=== PATIENT | male | born 1935 | race Caucasian/White ===

== ENCOUNTER 2016-05-31 17:06 | Observation (INO) ==
[2016-05-31] MEDS ORDERED: Ipratropium/Albuterol Neb 3 ML IH ONE (17:19)
[2016-05-31] MEDS ORDERED: methylPREDNISolone 125 MG/2 ML VIAL IVP ONE (17:25)
--- NOTE | 2016-05-31 17:35 | Emergency Department Note ---
Disposition Clinical Impression: Acute exacerbation of chronic obstructive pulmonary disease (COPD), Community acquired pneumonia Disposition: Home, Self-Care Condition: Good Referrals: NO,PCP [Non-Partnered Physician] - Forms: ED Satisfaction Letter General Adult HPI - General Chief complaint: ED Shortness of Breath/Dyspnea Stated complaint: BEST Time Seen by Provider: 05/31/16 17:14 Source: patient Nursing Notes Reviewed: Yes Vital Signs Reviewed: Yes - History of Present Illness Pain Scale: 0 - Related Data Home Medications Medication Instructions Recorded Confirmed Albuterol Sulfate [Albuterol 2 puff IS Q4H PRN 12/17/14 05/31/16 Inhaler] Aspirin 325 mg PO DAILY 12/17/14 05/31/16 Cholecalciferol (D-3) [Vitamin D3] 2,000 unit PO DAILY 12/17/14 05/31/16 Diltiazem HCl [Diltiazem 24Hr Cd] 240 mg PO DAILY 12/17/14 05/31/16 Latanoprost [Xalatan] 1 drop LEFT EYE HS 12/17/14 05/31/16 Tiotropium [Spiriva] 18 mcg IH 0700 12/17/14 05/31/16 Alfuzosin HCl [Uroxatral] 10 mg PO DAILY 05/31/16 05/31/16 Brimonidine Tartrate/Timolol 1 drop LEFT EYE TID 05/31/16 05/31/16 [Combigan Eye Drops] Budesonide/Formoterol 160/4.5 2 puff IH BIDR 05/31/16 05/31/16 [Symbicort 160/4.5] Oxygen 2 l NS AD 05/31/16 05/31/16 Ranitidine HCl [Acid Turbogenerator Operator] 150 mg PO BID 05/31/16 05/31/16 Ubidecarenone [Co Q-10] 200 mg PO DAILY 05/31/16 05/31/16 Allergies Allergy/AdvReac Type Severity Reaction Status Date / Time Penicillins Allergy Swelling Verified 12/08/14 10:28 of Lip/Tongue/Throat Past Medical History - Past Medical History Medical history: Reports: asthma, COPD, coronary artery disease, hyperlipidemia , hypertension Surgical history: Reports: cholecystectomy Psychiatric history: Reports: no psych history - Social History Smoking Status: Never smoker Smokeless Tobacco Status: No Alcohol use: Reports: none Drug use: Reports: none Physical Exam - General General appearance: alert Course Vital Signs Temperature 98.2 F 05/31/16 17:14 Pulse Rate 83 05/31/16 17:14 Respiratory Rate 20 05/31/16 17:14 Blood Pressure 119/95 05/31/16 17:14 O2 Sat by Pulse Oximetry 93 L 05/31/16 17:14 Temperature 98.2 F 05/31/16 17:14 Pulse Rate 78 05/31/16 20:07 Respiratory Rate 22 05/31/16 18:32 Blood Pressure 125/69 05/31/16 20:07 O2 Sat by Pulse Oximetry 93 L 05/31/16 20:07 Oxygen Delivery Oxygen Delivery Venti Mask Medical Decision Making - MDM Narrative Medical decision making narrative: I examined this patient and my medical decision-making was reviewed with the GLASS DECORATOR/PA/Advanced Practice Nurse/Resident Physician. I agree with the documented findings, disposition and treatment plan as described except to the extent set forth below. I evaluated this patient today with Dr. Cortez, I agree with his evaluation and management plan, supervising care the patient outstay. Patient comes in today with acute dyspnea and on for more than 24 hours. History of COPD he has also had a history of blebs with lung collapse on the left he does not think it status he has had a lobectomy with pleurodesis. He denies any chest pain at this time he does not think he is getting fluid buildup did go golf this week and then thinks she has been cut short of breath after that. There is conversationally dyspneic to about 2 words he has no pitting edema no chest pain. He is not moving air well and the lungs were starting on breathing treatments here once we put him on oxygen from his normal 2 L up to facemasks his sats went up to 98%. We will reassess him once his labs and x-rays are back. He is in agreement with this plan. Most likely he will need admission. Chest X-Ray 05/31/16 17:14 IMPRESSION: Asymmetric right lower lobe airspace disease concerning for pneumonia. Hyperinflation and upper lobe emphysema. D/ / Sonu Conley MD / Sonu Conley MD Interpreting Provider: Sonu Conley MD 1824 hrs.: 4 to go ahead and bring him into the hospital. Her grandmother speak with hospitalist. Start him on antibiotics here. He is in agreement this plan. He is doing better after he got the 3 breathing treatments here but he still required about 6 L of oxygen. She is not having pain he is not coughing here he is nontoxic in appearance. His critical care time exclusive separately billable procedures is 32 minutes. - Lab Data Result diagrams: 05/31/16 17:38 05/31/16 17:38 Lab Results 05/31/16 05/31/16 05/31/16 Range/Units 17:38 17:38 17:38 WBC 8.1 (4.3-11.1) K/mcL RBC 4.32 (4.19-5.50) M/mcL Hgb 13.1 (12.9-16.9) g/dL Hct 40.8 (37.5-50.1) % MCV 94.4 (83.0-100.0) fL MCH 30.3 (28.0-33.3) pg MCHC 32.1 (31.6-35.5) g/dL RDW 14.1 (11.5-14.5) % Plt Count 176 (140-400) K/mcL MPV 11.2 (9.4-12.4) fL Immature Gran % 0.4 (0-4) % Seg Neutrophils % 73.4 % Lymphocytes % 10.5 % Monocytes % 13.4 % Eosinophils % 1.7 % Basophils % 0.6 % Neutrophils # 6.0 (1.6-8.9) K/mcL Lymphocytes # 0.9 (0.6-4.6) K/mcL Monocytes # 1.1 (0.0-1.3) K/mcL Eosinophils # 0.1 (0.0-0.6) K/mcL Basophils # 0.1 (0.0-0.2) K/mcL PT (9.4-12.1) Seconds INR APTT (26.0-36.0) Seconds Sodium 141 (136-145) mEq/L Potassium 3.4 L (3.5-4.5) mEq/L Chloride 108 (98-109) mEq/L Carbon Dioxide 21 (19-29) mEq/L BUN 19 (8-26) mg/dL Creatinine 1.29 H (0.72-1.25) mg/dL Est GFR ( Amer) > 60 (> 60) Est GFR (Non-Af Amer) 54 L (> 60) BUN/Creatinine Ratio 15 (6-26) Glucose 115 H (70-99) mg/dL Calculated Osmolality 295 (280-300) Calcium 9.2 (8.6-10.8) mg/dL Troponin I 0.02 (0-0.03) ng/mL B-Natriuretic Peptide (0-100) pg/mL 05/31/16 05/31/16 Range/Units 17:38 17:38 WBC (4.3-11.1) K/mcL RBC (4.19-5.50) M/mcL Hgb (12.9-16.9) g/dL Hct (37.5-50.1) % MCV (83.0-100.0) fL MCH (28.0-33.3) pg MCHC (31.6-35.5) g/dL RDW (11.5-14.5) % Plt Count (140-400) K/mcL MPV (9.4-12.4) fL Immature Gran % (0-4) % Seg Neutrophils % % Lymphocytes % % Monocytes % % Eosinophils % % Basophils % % Neutrophils # (1.6-8.9) K/mcL Lymphocytes # (0.6-4.6) K/mcL Monocytes # (0.0-1.3) K/mcL Eosinophils # (0.0-0.6) K/mcL Basophils # (0.0-0.2) K/mcL PT 13.1 H (9.4-12.1) Seconds INR 1.2 APTT 26.8 (26.0-36.0) Seconds Sodium (136-145) mEq/L Potassium (3.5-4.5) mEq/L Chloride (98-109) mEq/L Carbon Dioxide (19-29) mEq/L BUN (8-26) mg/dL Creatinine (0.72-1.25) mg/dL Est GFR ( Amer) (> 60) Est GFR (Non-Af Amer) (> 60) BUN/Creatinine Ratio (6-26) Glucose (70-99) mg/dL Calculated Osmolality (280-300) Calcium (8.6-10.8) mg/dL Troponin I (0-0.03) ng/mL B-Natriuretic Peptide 269 H (0-100) pg/mL
[2016-05-31 17:47] LABS: Basophils # 0.1 K/mcL (0.0-0.2); Basophils % 0.6 %; Eosinophils # 0.1 K/mcL (0.0-0.6); Eosinophils % 1.7 %; Hematocrit 40.8 % (37.5-50.1); Hemoglobin 13.1 g/dL (12.9-16.9); Immature Granulocytes % 0.4 % (0-4); Lymphocytes # 0.9 K/mcL (0.6-4.6); Lymphocytes % 10.5 %; Mean Corpuscular HGB Conc 32.1 g/dL (31.6-35.5); Mean Corpuscular Hemoglobin 30.3 pg (28.0-33.3); Mean Corpuscular Volume 94.4 fL (83.0-100.0); Mean Platelet Volume 11.2 fL (9.4-12.4); Monocytes # 1.1 K/mcL (0.0-1.3); Monocytes % 13.4 %; Platelet Count 176 K/mcL (140-400); Red Blood Count 4.32 M/mcL (4.19-5.50); Red Cell Distribution Width 14.1 % (11.5-14.5); Segmented Neutrophils % 73.4 %
[2016-05-31 17:51] LABS: INR 1.2; Prothrombin Time 13.1 Seconds (9.4-12.1)
[2016-05-31 17:54] LABS: Activated Partial Thrombo Time 26.8 Seconds (26.0-36.0)
[2016-05-31 17:56] LABS: BUN/Creatinine Ratio 15 (6-26); Blood Urea Nitrogen 19 mg/dL (8-26); Calcium 9.2 mg/dL (8.6-10.8); Carbon Dioxide 21 mEq/L (19-29); Chloride 108 mEq/L (98-109); Glucose 115 mg/dL (70-99); Osmolality,Calculated 295 (280-300); Potassium 3.4 mEq/L (3.5-4.5); Sodium 141 mEq/L (136-145); eGFR For African Americans > 60 (> 60); eGFR For Non-African Americans 54 (> 60)
--- NOTE | 2016-05-31 18:05 | Emergency Department Note ---
Disposition Clinical Impression: Acute exacerbation of chronic obstructive pulmonary disease (COPD), Community acquired pneumonia Disposition: Home, Self-Care Condition: Good Referrals: NO,PCP [Non-Partnered Physician] - Forms: ED Satisfaction Letter Time of Disposition: 20:45 SOB HPI - General Chief Complaint: ED Shortness of Breath/Dyspnea Stated Complaint: BEST Time Seen by Provider: 05/31/16 17:14 Source: patient Nursing Notes Reviewed: Yes Vital Signs Reviewed: Yes - History of Present Illness Mr. Thrasher, a 80-year-old male, presents from home by POV with chief complaint of shortness of breath. Onset Friday while playing golf. This is been persistent until presentation today. His recent for coming in today so the Friday that he simply is not getting any better. Past medical history is significant for COPD with emphysema, on 2 L baseline oxygen at home with nebulizer. He notes marginal improvement with nebulizer. 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 Patient denies associated fever, chills, nausea, vomiting, chest pain, palpitations, abdominal pain, change in appetite, difficulty with urination, diarrhea, constipation, melena, hematochezia. 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 CAD on daily aspirin and diltiazem. BPH. Denies history of NH. - Related Data Home Medications Medication Instructions Recorded Confirmed Albuterol Sulfate [Albuterol 2 puff IS Q4H PRN 12/17/14 05/31/16 Inhaler] Aspirin 325 mg PO DAILY 12/17/14 05/31/16 Cholecalciferol (D-3) [Vitamin D3] 2,000 unit PO DAILY 12/17/14 05/31/16 Diltiazem HCl [Diltiazem 24Hr Cd] 240 mg PO DAILY 12/17/14 05/31/16 Latanoprost [Xalatan] 1 drop LEFT EYE HS 12/17/14 05/31/16 Tiotropium [Spiriva] 18 mcg IH 0700 12/17/14 05/31/16 Alfuzosin HCl [Uroxatral] 10 mg PO DAILY 05/31/16 05/31/16 Brimonidine Tartrate/Timolol 1 drop LEFT EYE TID 05/31/16 05/31/16 [Combigan Eye Drops] Budesonide/Formoterol 160/4.5 2 puff IH BIDR 05/31/16 05/31/16 [Symbicort 160/4.5] Oxygen 2 l NS AD 05/31/16 05/31/16 Ranitidine HCl [Acid Vascular Nurse] 150 mg PO BID 05/31/16 05/31/16 Ubidecarenone [Co Q-10] 200 mg PO DAILY 05/31/16 05/31/16 Allergies Allergy/AdvReac Type Severity Reaction Status Date / Time Penicillins Allergy Swelling Verified 12/08/14 10:28 of Lip/Tongue/Throat All systems ED: reviewed and negative except as stated. Constitutional: Denies: fever, chills, weakness Eyes: Denies: vision change ENT ED: Denies: congestion Cardiovascular: Reports: dyspnea on exertion. Denies: chest pain, palpitations , edema, syncope Respiratory: Reports: dyspnea. Denies: cough, wheezes, hemoptysis Gastrointestinal: Denies: abdominal pain, nausea, vomiting, diarrhea, constipation, hematemesis, melena, hematochezia Genitourinary: Denies: urgency, dysuria, frequency Musculoskeletal: Denies: back pain, neck pain Integumentary: Denies: rash Neurological: Denies: headache, weakness, numbness, paresthesias, confusion, abnormal gait, vertigo Endocrine: Denies: fatigue Past Medical History - Past Medical History Medical history: Reports: asthma, COPD, coronary artery disease, hyperlipidemia , hypertension Surgical history: Reports: cholecystectomy Psychiatric history: Reports: no psych history - Social History Smoking Status: Never smoker Smokeless Tobacco Status: No Alcohol use: Reports: none Drug use: Reports: none Physical Exam General: Patient is alert, oriented, and in acute respiratory distress. He is having conversational dyspnea with accessory muscle use. HEENT: No facial asymmetry. Head is normocephalic and atraumatic. Trachea midline Cardiovascular: Heart regular rate and rhythm without clicks, rubs, gallops, or murmurs. No JVD. PMI nondisplaced. No pedal edema. Her cells pedis pulses 2 + and equal bilaterally. Respiratory: Symmetric chest rise with poor respiratory effort. Prolonged expiratory phase. Bilateral breath sounds are without crackles or rhonchi. Diffuse wheezing throughout. Abdomen: Obese. Bowel sounds present normoactive x-4 quadrants. Abdomen is soft, nondistended, and nontender. No organomegaly noted. Psych: Patient's affect is appropriate for situation. - General General appearance: alert Course Course Narrative: Patient arrived in respiratory distress with initial O2 sat of mid 80s on 2 L nasal cannula. He had 2-3 word conversational dyspnea and accessory muscle use even after increasing to 4 L nasal cannula. Initially increased the patient's oxygen flow to 6 L with no improvement. Patient improved substantially after 2 nebulizer therapy and placement on high flow nonrebreather. Patient's labwork was unremarkable: No leukocytosis, no anemia, normal renal function, no troponin, no lateral abnormalities. There was an elevation in BNP however was not significantly so. Patient does not display clinical signs of congestive heart failure. Chest x-ray concerning for left lower lobe pneumonia which is empirically community acquired pneumonia. We will provide IV steroids, empiric antibiotics against mucoid pneumonia, draw blood cultures. Discussed the findings with the patient who now feels substantially better than he did on intake. He agrees to admission to the hospital for continued respiratory therapy and continued IV antibiotics. Patient weaned down to 4 L nasal cannula with O2 saturation 94%. The hospitalist, , who agrees to accept the patient. Vital Signs Temperature 98.2 F 05/31/16 17:14 Pulse Rate 83 05/31/16 17:14 Respiratory Rate 20 05/31/16 17:14 Blood Pressure 119/95 05/31/16 17:14 O2 Sat by Pulse Oximetry 93 L 05/31/16 17:14 Temperature 98.2 F 05/31/16 17:14 Pulse Rate 83 05/31/16 17:14 Respiratory Rate 20 05/31/16 17:26 Blood Pressure 119/95 05/31/16 17:14 O2 Sat by Pulse Oximetry 98 05/31/16 17:26 Oxygen Delivery Oxygen Delivery Non Rebreather Mask Shortness of Breath/Dyspnea - Lab Data Result diagrams: 05/31/16 17:38 05/31/16 17:38 Lab Results 05/31/16 05/31/16 05/31/16 Range/Units 17:38 17:38 17:38 WBC 8.1 (4.3-11.1) K/mcL RBC 4.32 (4.19-5.50) M/mcL Hgb 13.1 (12.9-16.9) g/dL Hct 40.8 (37.5-50.1) % MCV 94.4 (83.0-100.0) fL MCH 30.3 (28.0-33.3) pg MCHC 32.1 (31.6-35.5) g/dL RDW 14.1 (11.5-14.5) % Plt Count 176 (140-400) K/mcL MPV 11.2 (9.4-12.4) fL Immature Gran % 0.4 (0-4) % Seg Neutrophils % 73.4 % Lymphocytes % 10.5 % Monocytes % 13.4 % Eosinophils % 1.7 % Basophils % 0.6 % Neutrophils # 6.0 (1.6-8.9) K/mcL Lymphocytes # 0.9 (0.6-4.6) K/mcL Monocytes # 1.1 (0.0-1.3) K/mcL Eosinophils # 0.1 (0.0-0.6) K/mcL Basophils # 0.1 (0.0-0.2) K/mcL PT (9.4-12.1) Seconds INR APTT (26.0-36.0) Seconds Sodium 141 (136-145) mEq/L Potassium 3.4 L (3.5-4.5) mEq/L Chloride 108 (98-109) mEq/L Carbon Dioxide 21 (19-29) mEq/L BUN 19 (8-26) mg/dL Creatinine 1.29 H (0.72-1.25) mg/dL Est GFR ( Amer) > 60 (> 60) Est GFR (Non-Af Amer) 54 L (> 60) BUN/Creatinine Ratio 15 (6-26) Glucose 115 H (70-99) mg/dL Calculated Osmolality 295 (280-300) Calcium 9.2 (8.6-10.8) mg/dL Troponin I 0.02 (0-0.03) ng/mL B-Natriuretic Peptide (0-100) pg/mL 05/31/16 05/31/16 Range/Units 17:38 17:38 WBC (4.3-11.1) K/mcL RBC (4.19-5.50) M/mcL Hgb (12.9-16.9) g/dL Hct (37.5-50.1) % MCV (83.0-100.0) fL MCH (28.0-33.3) pg MCHC (31.6-35.5) g/dL RDW (11.5-14.5) % Plt Count (140-400) K/mcL MPV (9.4-12.4) fL Immature Gran % (0-4) % Seg Neutrophils % % Lymphocytes % % Monocytes % % Eosinophils % % Basophils % % Neutrophils # (1.6-8.9) K/mcL Lymphocytes # (0.6-4.6) K/mcL Monocytes # (0.0-1.3) K/mcL Eosinophils # (0.0-0.6) K/mcL Basophils # (0.0-0.2) K/mcL PT 13.1 H (9.4-12.1) Seconds INR 1.2 APTT 26.8 (26.0-36.0) Seconds Sodium (136-145) mEq/L Potassium (3.5-4.5) mEq/L Chloride (98-109) mEq/L Carbon Dioxide (19-29) mEq/L BUN (8-26) mg/dL Creatinine (0.72-1.25) mg/dL Est GFR ( Amer) (> 60) Est GFR (Non-Af Amer) (> 60) BUN/Creatinine Ratio (6-26) Glucose (70-99) mg/dL Calculated Osmolality (280-300) Calcium (8.6-10.8) mg/dL Troponin I (0-0.03) ng/mL B-Natriuretic Peptide 269 H (0-100) pg/mL
[2016-05-31] MEDS ORDERED: Azithromycin 250 MG TABLET PO ONE (18:32)
[2016-05-31] MEDS ORDERED: Levofloxacin 750 MG/150 ML 750 MG/150 ML BAG IVPB ONE (18:33)
--- NOTE | 2016-05-31 21:11 | Internal Med History&Physical ---
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 He normally requires 2L supplemental oxygen at home at night however over the last 4 days has had increased O2 requirement, shortness of breath and cough. CXR showed asymmetric right lower lobe airspace disease concerning for pneumonia. Patient is currently afebrile, vital signs stable with no WBC. However, the x-ray is concerning for an atypical pneumonia possibly viral in origin. Will get a Flu PCR. Will alos continue to treat with levaquin to cover for communicty acquired pneumonia. Patient has a history of recurrent pneumothorax requiring surgery. CXR does not show any pneumothorax. However, with the patient significant underlying pulmonary disease, will get a non- contrast CT chest for further evaluation. Patient was not wheezing on exam, however exacerbation of COPD is likely involved in clinical process. As patient is not wheezing, will hold off on steroids. Also concerned for worsening of his bicuspid aortic valve and dilated aortic root contributing to his shortness of breath. 1. Non-contrast CT chest 2. Influenza PCR 3. Blood cultures pending 4. PO levaquin 750mg daily for 7 days for antibiotic coverage 5. Duonebs as needed 6. Continuous oxygen saturation monitoring and supplemental O2 as needed 6. Continue home medications. (2) COPD (chronic obstructive pulmonary disease) Current visit: Yes Status: Acute Patient with history of COPD. Patient is not wheezing on exam at this time. It is possible the exaccerbation of COPD may play a role in patient's acute SOB. 125mg IV steroids given in the ED. As he is not wheezing, will hold on continuing steroids at this time. 1. Supplemental O2 as needed 2. Duonebs as needed 3. Continue home medications as prescribed - spiriva and symbicort Qualifiers: COPD type: emphysema Emphysema type: unspecified Qualified Code(s): J43.9 - Emphysema, unspecified (3) Bicuspid aortic valve Current visit: Yes Status: Acute Patient with bicuspid aortic valve and associated aortic root dilation. Last ECHO was unable to adequately evaluate. Concern that worsening of this may be contributing to his shortness of breath. Will get an new ECHO while inpatient for evaluation. 1. ECHO (4) BPH (benign prostatic hyperplasia) Current visit: Yes Status: Acute Patient with BPH. Continue home dose flomax. Qualifiers: Prostatic enlargement morphology: unspecified morphology Lower urinary tract symptom presence: symptoms present Qualified Code(s): N40.1 - Benign prostatic hyperplasia with lower urinary tract symptoms (5) HTN (hypertension) Current visit: Yes Status: Acute Patient with history of HTN. Blood pressures appropriate on admission. Will continue home doses of diltiazem and continue to monitor. Qualifiers: Hypertension type: essential hypertension Qualified Code(s): I10 - Essential (primary) hypertension (6) T2DM (type 2 diabetes mellitus) Current visit: Yes Status: Acute Patient with T2DM controlled by diet and exercise. Will continue with diabetic diet while inpatient. 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 Internal Medicine - H&P: HPI Chief complaint: Shortness of breath Admitted From: Emergency Dept Plans for Post Hospital Care: Home History of present illness: Mr. 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 Patient presents with shortness of breath beginning 4 days ago. He states that he played golf with no difficulty. He had difficulty sleeping that evening due to acid reflex and developed shortness of breath with fever and chills. The next morning he tried to walk to the mailbox, which he usually does successfully without oxygen. He became extremely short of breath. He checked his oxygenation saturation, normal around 95% at home, and it was 88%. He self medicated his shortness of breath at home increasing his oxygen and duoneb treatments. Patient reports that he just wasn't getting any better. He reports that he has occasional right sided chest pain that made him worried maybe he had a collapsed lung on the other side but he says that this has improved an is almost gone now. He also reports associated nonproductive cough congestion, decreased appetite and chills when this first started. He denies fever, changes in vision, lightheadedness/dizziness, chest pressure, nausea/ vomiting, abdominal pain, changes in bowel or bladder function. In the ED, patient was afebrile, respiratory rate 20-22, blood pressure and heart rate appropriate. Patient arrived at 84% on 2L supplemental oxygen and required increased oxygen via non-rebreather initially. Labs revealed a low potassium at 3.2. Creatinine 1.29 (previous 1.10 back in 2016), GFR 54. Troponin 0.02. BNP 269. CXR showed asymmetric right lower lobe airspace disease concerning for pneumonia, hyperinflation and upper lobe emphysema. On exam, patient was awake and alert, in no acute distress. Patient had been weaned down on the supplemental oxygen and was currently 94% on 4L nasal cannula. Heart regular rate and rhythm, murmur heard along left sternal border. Lungs diminished bilaterally - no crackles or wheezing at this time. Abdomen soft, non-tender. No pedal edema. Motor and sensation grossly intact. Past Med Surg Social Fam HX - Past Medical History Medical history: COPD, coronary artery disease, diabetes, GERD, glaucoma, hyperlipidemia, hypertension, valvular heart disease (bicuspid aortic valve with dilated aortic root) Psychiatric history: no psych history - Past Surgical History Surgical History: cholecystectomy - Social History Smoking Status: Never smoker Smokeless Tobacco Status: No Alcohol use: none Drug use: none - Family History Sister Living Status: Still Living Hx Family Respiratory Disorders: Yes (copd) Father Hx Family Cancer: Yes (leukemia) Mother Hx Family Neurologic Disorders: Yes (brain aneurysm) Internal Medicine - H&P: Meds Albuterol Sulfate [Albuterol Inhaler] 2 puff IS Q4H PRN 12/17/14 [History] Aspirin 325 mg PO DAILY 12/17/14 [History] Cholecalciferol (D-3) [Vitamin D3] 2,000 unit PO DAILY 12/17/14 [History] Diltiazem HCl [Diltiazem 24Hr Cd] 240 mg PO DAILY 12/17/14 [History] Latanoprost [Xalatan] 1 drop LEFT EYE HS 12/17/14 [History] Tiotropium [Spiriva] 18 mcg IH 0700 12/17/14 [History] Alfuzosin HCl [Uroxatral] 10 mg PO DAILY 05/31/16 [History] Brimonidine Tartrate/Timolol [Combigan Eye Drops] 1 drop LEFT EYE TID 05/31/16 [ History] Budesonide/Formoterol 160/4.5 [Symbicort 160/4.5] 2 puff IH BIDR 05/31/16 [ History] Oxygen 2 l NS AD 05/31/16 [History] Ranitidine HCl [Acid Scarfer] 150 mg PO BID 05/31/16 [History] Ubidecarenone [Co Q-10] 200 mg PO DAILY 05/31/16 [History] Allergies Penicillins Allergy (Verified 12/08/14 10:28) Swelling of Lip/Tongue/Throat All Systems PM: A 10-system review of systems was performed and is negative for pertinent findings except as documented above in the HPI. - Constitutional Constitutional: chills, no fever(s), no falls - EENT Eyes: no change in vision Nose, mouth and throat: nasal congestion, no sore throat - Cardiovascular Cardiovascular ROS IM: dyspnea, dyspnea on exertion, no chest pain, no edema, no irregular heart rhythm, no lightheadedness, no palpitations, no syncope - Respiratory Respiratory: cough, dyspnea, dyspnea on exertion, no hemoptysis, no wheezing - Gastrointestinal Gastrointestinal: constipation, heartburn, no abdominal pain, no diarrhea, no nausea, no vomiting - Genitourinary Genitourinary ROS male: difficulty urinating, no dysuria - Neurological Neurological ROS: no confusion, no headache(s) - Constitutional Vitals: Temp Pulse Resp BP Pulse Ox 98.2 F 78 22 125/69 93 L 05/31/16 17:14 05/31/16 20:07 05/31/16 18:32 05/31/16 20:07 05/31/16 20:07 General appearance: Present: A&O X 3, pleasant, no acute distress, answers questions appropriately - Head Head exam: Present: atraumatic, normal inspection, normocephalic - Eye Eye exam: Present: EOMI, normal appearance, PERRL - ENT ENT exam: Present: mucous membranes moist - Respiratory Respiratory exam: Present: decreased breath sounds. Absent: rales, respiratory distress, wheezes - Cardiovascular Cardiovascular exam: Present: RRR - GI/Abdominal GI/Abdominal exam: Present: soft. Absent: distended, guarding, rebound, rigid, tenderness - Extremities Exam Extremities exam: Present: normal inspection. Absent: pedal edema - Neurological Exam Neurological exam: Present: alert, CN II-XII intact, oriented X3 Internal Med - H&P Results - Labs CBC & Chem 7: 05/31/16 17:38 05/31/16 17:38 Labs: Short CBC 05/31/16 Range/Units 17:38 WBC 8.1 (4.3-11.1) K/mcL Hgb 13.1 (12.9-16.9) g/dL Hct 40.8 (37.5-50.1) % Plt Count 176 (140-400) K/mcL Neutrophils # 6.0 (1.6-8.9) K/mcL BMP 05/31/16 17:38 Sodium 141 Potassium 3.4 L Chloride 108 Carbon Dioxide 21 BUN 19 Creatinine 1.29 H Glucose 115 H Calcium 9.2 Cardiac Enzymes 05/31/16 Range/Units 17:38 Troponin I 0.02 (0-0.03) ng/mL - Impressions ITS Impressions Chest X-Ray 05/31/16 17:14 IMPRESSION: Asymmetric right lower lobe airspace disease concerning for pneumonia. Hyperinflation and upper lobe emphysema. D/ / Sonu Conley MD / Sonu Conley MD Interpreting Provider: Sonu Conley MD <Tony Barreto - Last Filed: 06/01/16 03:54> Date of Encounter: 06/01/16 - Constitutional Constitutional: chills, weakness - EENT Nose, mouth and throat: nasal congestion, no sinus pain, no sinus pressure - Cardiovascular Cardiovascular ROS IM: dyspnea, dyspnea on exertion - Respiratory Respiratory: cough, dyspnea, dyspnea on exertion, chest congestion, no hemoptysis, no excessive phlegm production - Musculoskeletal Musculoskeletal ROS IM: muscle weakness, no back pain, no muscle cramps - Integumentary Integumentary IM: no rash, no jaundice - Neurological Neurological ROS: no focal weakness, no frequent falls - Psychiatric Psychiatric: no anxiety, no depression - Endocrine Endocrine IM: no polydipsia, no polyuria - Allergic/Immunologic Allergic/Immunologic: no wheezing, no GI upset with certain foods - Constitutional Vitals: Temp Pulse Resp BP Pulse Ox 98.1 F 70 15 144/80 94 L 06/01/16 03:23 06/01/16 03:23 06/01/16 03:23 06/01/16 03:23 06/01/16 03:23 General appearance: Present: cooperative, mild distress, A&O X 3, pleasant - Head Head exam: Present: atraumatic, normal inspection - ENT ENT exam: Present: mucous membranes moist - Respiratory Respiratory exam: Present: decreased breath sounds, rales (faint crackles right base). Absent: chest wall tenderness, respiratory distress, wheezes - Cardiovascular Cardiovascular exam: Present: RRR, +S1, +S2, systolic murmur (grade 2) - GI/Abdominal GI/Abdominal exam: Present: soft. Absent: hepatomegaly, splenomegaly - Extremities Exam Extremities exam: Present: full ROM, warm. Absent: tenderness - Psychiatric Psychiatric exam: Present: normal affect, normal mood - Skin Skin exam: Present: dry, warm. Absent: rash Internal Med - H&P Results - Labs CBC & Chem 7: 05/31/16 17:38 05/31/16 17:38 - Impressions ITS Impressions Chest CT 05/31/16 22:44 IMPRESSION: 1. Moderate to severe centrilobular emphysema. 2. Ground-glass opacities in right lung base may reflect mild pneumonia. 3. Stable aneurysmal dilation of the ascending aorta. D/ / Gio Myrick MD / Gio Myrick MD Interpreting Provider: Gio Myrick MD - Diagnostic Studies CT scan - chest Status: image reviewed by me (significant emphysematous blebs noted; suspect RLL pneumonia) - Attending Attestation I discussed the patient CROW, PMH, ROS, lab data, and exam findings with Dr. Thao Valdovinos. I then saw and examined patient independently as well. Pt confirms history provided to me by Dr. Valdovinos. On my exam, however, he is in some mild respiratory distress and I appreciate some crackles in the right base. Given his cardiac history and symptoms, I too worry about his aortic valve stenosis as possible cause for his symptoms. His COPD is severe. He is not wheezing presently, however. I agree with the cardiac work-up recommended by Dr. Valdovinos. Other than my comments above and noted exam findings, I agree with Dr. Valdovinos' assessment and plan.
[2016-05-31] MEDS ORDERED: *HR* Morphine 2 MG/ML SYRINGE IVP PRN (21:20)
[2016-05-31] MEDS ORDERED: Acetaminophen 325 MG TABLET PO PRN (21:20)
[2016-05-31] MEDS ORDERED: Ondansetron ODT 4 MG TAB.RAPDIS SL PRN (21:20)
[2016-05-31] MEDS ORDERED: Naloxone 0.4 MG/ML INJ IVP PRN (21:20)
[2016-05-31] MEDS ORDERED: *HR* OxyCODONE/APAP 5/325 TABLET PO PRN (22:52)
[2016-05-31] MEDS: *HR* Heparin 5,000 UNIT/ML VIAL SQ SCH (23:30)
[2016-06-01 01:41] LABS: 2009 H1N1 PCR NOT DETECTED (Not Detect); Influenza A PCR Negative (Negative); Influenza B PCR Negative (Negative)
[2016-06-01] MEDS ORDERED: Ipratropium/Albuterol Neb 3 ML IH PRN (02:27)
[2016-06-01 04:29] LABS: Hematocrit 37.7 % (37.5-50.1); Hemoglobin 12.2 g/dL (12.9-16.9); Immature Granulocytes % 0.3 % (0-4); Lymphocytes # 0.3 K/mcL (0.6-4.6); Lymphocytes % 11.3 %; Mean Corpuscular HGB Conc 32.4 g/dL (31.6-35.5); Mean Corpuscular Hemoglobin 30.5 pg (28.0-33.3); Mean Corpuscular Volume 94.3 fL (83.0-100.0); Mean Platelet Volume 11.3 fL (9.4-12.4); Monocytes # 0.1 K/mcL (0.0-1.3); Monocytes % 2.7 %; Neutrophils # 2.6 K/mcL (1.6-8.9); Platelet Count 161 K/mcL (140-400); Red Cell Distribution Width 13.8 % (11.5-14.5); Segmented Neutrophils % 85.7 %
[2016-06-01 04:54] LABS: BUN/Creatinine Ratio 16 (6-26); Blood Urea Nitrogen 18 mg/dL (8-26); Calcium 9.3 mg/dL (8.6-10.8); Carbon Dioxide 21 mEq/L (19-29); Chloride 109 mEq/L (98-109); Glucose 216 mg/dL (70-99); Magnesium 1.8 mg/dL (1.6-2.6); Osmolality,Calculated 298 (280-300); Phosphorous 3.3 mg/dL (2.3-4.7); Potassium 4.1 mEq/L (3.5-4.5); Sodium 140 mEq/L (136-145); eGFR For African Americans > 60 (> 60); eGFR For Non-African Americans > 60 (> 60)
[2016-06-01] MEDS: *HR* Heparin 5,000 UNIT/ML VIAL SQ SCH ×3 (06:04→23:30)
[2016-06-01] MEDS: Famotidine 20 MG TABLET PO SCH ×2 (06:04→17:23)
[2016-06-01] MEDS: Budesonide/Formoterol 160/4.5 MDI IH SCH ×2 (07:59→19:52)
[2016-06-01] MEDS: Tiotropium 18 MCG inhalation IH SCH (08:00)
[2016-06-01] MEDS: Cholecalciferol (D-3) 1,000 UNIT TABLET PO SCH (08:33)
[2016-06-01] MEDS: Aspirin 325 MG TABLET PO SCH (08:34)
[2016-06-01] MEDS: Diltiazem CD (24hr) 240 MG CAPSULE PO SCH (08:34)
[2016-06-01] MEDS: CO Q-10 PO SCH (08:37)
[2016-06-01] MEDS ORDERED: *HR* LORazepam 0.5 MG TABLET PO PRN (15:21)
--- NOTE | 2016-06-01 17:46 | Internal Med Progress Note ---
Date of Encounter: 06/01/16 Time of Encounter: 17:44 - Assessment and plan (1) Respiratory insufficiency Current Visit: Yes Status: Acute Assessment and plan: Influenza PCR is negative Blood cultures pending PO levaquin 750mg daily for 7 days for antibiotic coverage, clinically improved. Duonebs as needed Continuous oxygen saturation monitoring and supplemental O2 as needed Continue home medications. (2) BPH (benign prostatic hyperplasia) Current Visit: Yes Status: Acute Assessment and plan: Patient with BPH. Continue home dose flomax. Qualifiers: Prostatic enlargement morphology: unspecified morphology Lower urinary tract symptom presence: symptoms present Qualified Code(s): N40.1 - Benign prostatic hyperplasia with lower urinary tract symptoms (3) Bicuspid aortic valve Current Visit: Yes Status: Acute Assessment and plan: Patient with bicuspid aortic valve and associated aortic root dilation. Last ECHO was unable to adequately evaluate. Concern that worsening of this may be contributing to his shortness of breath. Will get an new ECHO while inpatient for evaluation. (4) COPD (chronic obstructive pulmonary disease) Current Visit: Yes Status: Acute Assessment and plan: Patient with history of COPD. Patient is not wheezing on exam at this time. 125mg IV steroids given in the ED. As he is not wheezing, steroids was not continued Supplemental O2 as needed Duonebs as needed Continue home medications as prescribed - spiriva and symbicort Qualifiers: COPD type: emphysema Emphysema type: unspecified Qualified Code(s): J43.9 - Emphysema, unspecified (5) Community acquired pneumonia Current Visit: Yes Status: Acute Assessment and plan: Ct chest showed right sided mild pneumonia. will continue levoflox IV while he is in the hospital. possible dc tomm if he is stable/ - Time Spent With Patient 25 - 35 minutes - Subjective Interval history: Patient seen at the bedside, admitted for acute COPD exacerbation with right lower zone pneumonia. Reports he feels much better than yesterday. - Constitutional Vitals: Temp Pulse Resp BP Pulse Ox 97.6 F 66 18 143/76 93 L 06/01/16 15:18 06/01/16 15:18 06/01/16 15:18 06/01/16 15:18 06/01/16 15:18 General appearance: Present: cooperative, A&O X 3, pleasant, no acute distress Exam: - Head Head exam: Present: atraumatic, normal inspection, normocephalic - Eye Eye exam: Present: EOMI, normal appearance, PERRL - ENT ENT exam: Present: mucous membranes moist - Respiratory Respiratory exam: Present: decreased breath sounds. Absent: rales, respiratory distress, wheezes - Cardiovascular Cardiovascular exam: Present: RRR - GI/Abdominal GI/Abdominal exam: Present: soft. Absent: distended, guarding, rebound, rigid, tenderness - Extremities Exam Extremities exam: Present: normal inspection. Absent: pedal edema - Neurological Exam Neurological exam: Present: alert, CN II-XII intact, oriented X3 Internal Medicine: Result - Labs CBC & Chem 7: 06/01/16 04:00 06/01/16 04:00 Labs: Short CBC 06/01/16 Range/Units 04:00 WBC 3.0 L D (4.3-11.1) K/mcL Hgb 12.2 L (12.9-16.9) g/dL Hct 37.7 (37.5-50.1) % Plt Count 161 (140-400) K/mcL Neutrophils # 2.6 (1.6-8.9) K/mcL BMP 06/01/16 04:00 Sodium 140 Potassium 4.1 Chloride 109 Carbon Dioxide 21 BUN 18 Creatinine 1.15 Glucose 216 H Calcium 9.3 - ABG Interpretation ABG results: PT/INR, D-dimer PT 13.1 Seconds (9.4-12.1) H 05/31/16 17:38 - Impressions Impressions Chest CT 05/31/16 22:44 IMPRESSION: 1. Moderate to severe centrilobular emphysema. 2. Ground-glass opacities superimposed in right lung base may reflect mild pneumonia. 3. Stable aneurysmal dilation of the ascending aorta. D/ / 06/01/2016 07:40:32 Gio Myrick MD / tkyer Interpreting Provider: Gio Myrick MD Consult Discharge Plan - Plan Referrals: Kristine Galloway MD [Primary Care Provider] -
[2016-06-01] MEDS ORDERED: levoFLOXacin 500 MG TABLET PO SCH (18:30)
[2016-06-01] MEDS ORDERED: Latanoprost 2.5 ML BOTTLE LEFT EYE SCH (21:00)
[2016-06-02 04:26] LABS: Hematocrit 37.8 % (37.5-50.1); Hemoglobin 12.1 g/dL (12.9-16.9); Immature Granulocytes % 0.5 % (0-4); Lymphocytes # 0.6 K/mcL (0.6-4.6); Lymphocytes % 7.5 %; Mean Corpuscular Volume 93.6 fL (83.0-100.0); Mean Platelet Volume 11.3 fL (9.4-12.4); Monocytes # 0.9 K/mcL (0.0-1.3); Monocytes % 10.6 %; Neutrophils # 6.5 K/mcL (1.6-8.9); Platelet Count 179 K/mcL (140-400); Red Blood Count 4.04 M/mcL (4.19-5.50); Red Cell Distribution Width 13.8 % (11.5-14.5); Segmented Neutrophils % 81.4 %
[2016-06-02 04:50] LABS: BUN/Creatinine Ratio 21 (6-26); Blood Urea Nitrogen 23 mg/dL (8-26); Carbon Dioxide 24 mEq/L (19-29); Chloride 108 mEq/L (98-109); Glucose 132 mg/dL (70-99); Magnesium 1.9 mg/dL (1.6-2.6); Osmolality,Calculated 292 (280-300); Phosphorous 3.7 mg/dL (2.3-4.7); Sodium 138 mEq/L (136-145); eGFR For African Americans > 60 (> 60); eGFR For Non-African Americans > 60 (> 60)
[2016-06-02] MEDS: Famotidine 20 MG TABLET PO SCH (06:42)
[2016-06-02] MEDS: *HR* Heparin 5,000 UNIT/ML VIAL SQ SCH (06:42)
[2016-06-02 07:04] VITALS: BP 144/56
[2016-06-02] MEDS: Tiotropium 18 MCG inhalation IH SCH (07:45)
[2016-06-02] MEDS: Budesonide/Formoterol 160/4.5 MDI IH SCH (07:46)
--- NOTE | 2016-06-02 08:02 | ECHO - Doppler Report ---
Echocardiogram Name: Dale Thrasher Date of Study: 06/01/2016 Date: 1935 Ht: 70.0 in Medical Record#: [id number] Age: 80 Wt: 224.0 lb Gender: Male BSA: 2.19 Order #: [id number] Location: [facility] Room #: [id number] Reading Physician: Rl Tariq MD, [facility] [place] Winder Tender: Zahira [place] Ordering Physician: Thao Valdovinos DO Primary Physician: Kristine Galloway MD Indications: Shortness of breath, History of bicuspid valve/Aortic root dilation Impressions: Mild aortic regurgitation. Mild-moderate aortic stenosis. LVEF 50-55%. Moderate concentric left ventricular hypertrophy. Mild left ventricular diastolic dysfunction. Borderline high pulmonary pressure. The aortic root is 4.3 cm. Left Ventricular Wall Motion: Rest Echo Findings The apical lateral and mid anterior lateral thakur were not visualized. All other wall segments showed normal motion. Findings: Study Quality * Technically adequate exam. Right Ventricle * Normal right ventricular structure and function. Right Atrium * Normal right atrial size. Aortic Valve * Mildly calcified aortic valve leaflets. * Mild aortic regurgitation. * Mild aortic stenosis. * Peak and mean gradients are 22 14 mmHg, respectively, maybe underestimated Interatrial Septum * No evidence of PFO by color Doppler. Left Ventricle * Moderate concentric left ventricular hypertrophy. * LVEF 50-55%. * Mild left ventricular diastolic dysfunction. Left Atrium * Mildly dilated left atrium. Mitral Valve * No mitral stenosis. * Normal mitral valve structure. * Mild mitral regurgitation. Tricuspid Valve * Trace tricuspid regurgitation. * No tricuspid stenosis. * Estimated RVSP is 35 mmHg. * Estimated RA pressure is 3-5 mmHg. * Borderline high pulmonary pressure. Pulmonic Valve * No pulmonic stenosis. * Pulmonic valve is not well visualized. * Mild pulmonic regurgitation. Pericardium * There is a trivial pericardial effusion present. IVC * Normal IVC dimensions and inspiratory collapse. ECG Findings * Normal sinus rhythm. Aorta * The aortic root is mildly dilated. * The aortic root is 4.3 cm. History Hypertension Hypercholesteremia Years 20 Packs 1.5 History of CAD/PTCA Valvular Disease 12/08/2014 a Previous Echo was performed. Measurements: BP: 141/ 75 2D Normal Values RVIDd: 4.50 cm <2.7 cm IVSd: 2.00 cm 0.6 - 1.0 cm LVIDd: 2.60 cm 3.7 - 5.6 cm LVPWd: 1.50 cm 0.6 - 1.1 cm LVIDs: 1.80 cm 1.5 - 3.6 cm AO: 4.30 cm < 4.0 cm LA: 3.80 cm 2.0 - 4.0cm %FS: 30.80 cm >25 % LVOT Diam: 1.90 cm LA volume: 90 Mitral Valve Peak E:.59 m/sec Peak A:1.07 m/sec E/A Ratio:0.6 Peak E' Lat Naman:7.35 cm/s Peak E' Med Naman:4.46 cm/s E/E' Lat Ratio:8.1 E/E' Med Ratio:13.3 LVOT Peak Naman:.82 m/sec Mean Naman:.57 m/sec Peak Grad:3.00 mmHg Mean Grad:1.00 mmHg Aortic Valve Peak Naman:2.34 m/sec Mean Naman:1.80 m/sec Peak Grad:22.00 mmHg Mean Grad:14.00 mmHg Valve Area:1.08 cm2 Tricuspid Valve TV Regurg Peak Grad: 32.00mmHg TV Regurg Peak Naman: 2.85m/sec Updated by Rl Tariq MD, [facility] on 06/02/2016 7:52:28 AM electronically signed on 06/02/2016 7:57:08 AM with status of Final Wall Motion Joyce: 1=Normal, 2=Hypokinesis, 3=Akinesis, 4=Dyskinesis, 5=Aneurysmal, 6=Hyperkinetic, X=Not Visualized (Blank)=Missing
[2016-06-02] MEDS: CO Q-10 PO SCH (08:32)
[2016-06-02] MEDS: Cholecalciferol (D-3) 1,000 UNIT TABLET PO SCH (08:35)
[2016-06-02] MEDS: Diltiazem CD (24hr) 240 MG CAPSULE PO SCH (08:35)
[2016-06-02] MEDS: Aspirin 325 MG TABLET PO SCH (08:35)
--- NOTE | 2016-06-02 10:55 | Discharge Summary ---
Date of Encounter: 06/02/16 Time of Encounter: 10:53 - Discharge Diagnosis (1) Respiratory insufficiency Priority: Primary Status: Acute (2) BPH (benign prostatic hyperplasia) Priority: Secondary Status: Acute Qualifiers: Prostatic enlargement morphology: unspecified morphology Lower urinary tract symptom presence: symptoms present Qualified Code(s): N40.1 - Benign prostatic hyperplasia with lower urinary tract symptoms (3) Bicuspid aortic valve Priority: Secondary Status: Acute (4) COPD (chronic obstructive pulmonary disease) Priority: Secondary Status: Acute Qualifiers: COPD type: emphysema Emphysema type: unspecified Qualified Code(s): J43.9 - Emphysema, unspecified (5) Community acquired pneumonia Priority: Primary Status: Acute - Discharge Medications Prescriptions: Levofloxacin 500 mg PO DAILY #5 tablet Home Medications: Albuterol Sulfate [Albuterol Inhaler] 2 puff IS Q4H PRN 12/17/14 [History] Aspirin 325 mg PO DAILY 12/17/14 [History] Cholecalciferol (D-3) 2,000 unit PO DAILY 12/17/14 [History] Diltiazem HCl [Diltiazem 24Hr Cd] 240 mg PO DAILY 12/17/14 [History] Latanoprost [Xalatan] 1 drop LEFT EYE HS 12/17/14 [History] Tiotropium [Spiriva] 18 mcg IH 0700 12/17/14 [History] Alfuzosin HCl [Uroxatral] 10 mg PO DAILY 05/31/16 [History] Brimonidine Tartrate/Timolol [Combigan 0.2%-0.5% Eye Drops] 1 drop LEFT EYE TID 05/31/16 [History] Budesonide/Formoterol 160/4.5 [Symbicort 160/4.5] 2 puff IH BIDR 05/31/16 [ History] Oxygen 2 l NS AD 05/31/16 [History] Ranitidine HCl [Acid Ambulatory Analyst] 150 mg PO BID 05/31/16 [History] Ubidecarenone [Co Q-10] 200 mg PO DAILY 05/31/16 [History] Levofloxacin 500 mg PO DAILY #5 tablet 06/02/16 [Rx] Allergies/Adverse Reactions: Allergies Penicillins Allergy (Verified 12/08/14 10:28) Swelling of Lip/Tongue/Throat Procedures/tests Complete & Pending: Procedures Performed prior 72 hours Category Date Time Status CT chest wo con [CT] Routine Cat Scan 05/31/16 22:44 Draft EV echocardiogram Routine Y 06/01/16 22:44 Completed Date of admission: 05/31/16 21:20 Primary care physician: Kristine Wells Discharging clinician: Rodney Díaz Anticipated date of discharge: 06/02/16 - Patient Status Disposition: Home, Self-Care Condition: Fair Functional capacity at discharge: independent ambulation Overall status at discharge: patient is back to baseline - Discharge Instructions Instructions: Diabetes Mellitus Type 2 in Adults (DC), Chronic Obstructive Pulmonary Disease (DC), Chronic Hypertension (DC), Pneumonia (DC) Follow Up With: Kristine Galloway MD [Primary Care Provider] - - Diet and Activity Activity: resume usual activities as tolerated Diet: advance to your usual diet Interval History: Mr. 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 Patient presents with shortness of breath beginning 4 days ago. Patient was admitted with acute on chronic respiratory insufficiency due to COPD/emphysema. He normally requires 2L supplemental oxygen at home at night however over the last 4 days has had increased O2 requirement, shortness of breath and cough. CXR showed asymmetric right lower lobe airspace disease concerning for pneumonia. Patient is currently afebrile, vital signs stable with no WBC. Influenza PCR is negative,Ct chest showed right sided mild pneumonia. Patient was started on IV Levaquin. he was alos continued on home meds and breathing treatments He had no wheezing on exam, he was given 1 dose of 125 mg of IV methylprednisolone at ED. Given no additional wheezing, IV steroids was not continued. He continued to improve on IV antibiotics. He is being discharged today on stable condition on oral levofloxacin to complete 7 days of treatment. Hospital course: Mr. Thrasher is a 80 year old male Time spent discussing smoking cessation with patient: more than 10 minutes - Time Spent with Patient Total time spent providing and/or coordinating discharge services: Greater than 30 minutes - Constitutional Vitals: Temp Pulse Resp BP Pulse Ox 97.6 F 61 18 144/56 93 L 06/02/16 07:03 06/02/16 07:03 06/02/16 07:50 06/02/16 07:03 06/02/16 09:39 General appearance: Present: cooperative, A&O X 3, pleasant, no acute distress Exam: - Head Head exam: Present: atraumatic, normal inspection, normocephalic - Eye Eye exam: Present: EOMI, normal appearance, PERRL - ENT ENT exam: Present: mucous membranes moist - Respiratory Respiratory exam: Present: decreased breath sounds. Absent: rales, respiratory distress, wheezes - Cardiovascular Cardiovascular exam: Present: RRR - GI/Abdominal GI/Abdominal exam: Present: soft. Absent: distended, guarding, rebound, rigid, tenderness - Extremities Exam Extremities exam: Present: normal inspection. Absent: pedal edema - Neurological Exam Neurological exam: Present: alert, CN II-XII intact, oriented X3
--- NOTE | 2016-06-03 06:46 | Electrocardiograph Report ---
[address] [place], [place] [address] Test Date: 2016-05-31 Pat Name: Dale Thrasher Department: 103 Room: 3B48 Gender: M Exchange Specialist: : [id number] Requested By: Brian Lewis Order Number: [id number] Reading MD: Rl Tariq MD Measurements Intervals [place] Rate: 76 P: 56 NH: 188 QRS: -7 QRSD: 108 T: 60 QT: 439 QTc: 470 Interpretive Statements SINUS RHYTHM PROLONGED QT INTERVAL Electronically Signed On 06-03-2016 6:44:28 EST by Rl Tariq MD
[2016-06-03] MEDS ORDERED: Levofloxacin 750 MG/150 ML 750 MG/150 ML BAG IVPB SCH (17:30)
== END 2016-06-02 11:52 | disposition home or self-care (01) ==
LOC: EMEROO 17:06 → 3BNU 17:06 → SUATTDRO 21:20 → 3BNU 21:42
PROVIDERS: ADMIT Pediatrics; ATTEND Internal Medicine Endocrinology, Diabetes & Metabolism

== ENCOUNTER 2017-08-06 18:07 | Inpatient (IN) ==
--- NOTE | 2017-08-06 18:23 | Emergency Department Note ---
Disposition Clinical Impression: Hypoxia Syncope Qualifiers: Syncope type: unspecified Qualified Code(s): R55 - Syncope and collapse Pneumonia Qualifiers: Pneumonia type: due to unspecified organism Laterality: left Lung location: unspecified part of lung Qualified Code(s): J18.9 - Pneumonia, unspecified organism Fall Qualifiers: Encounter type: initial encounter Qualified Code(s): W19.XXXA - Unspecified fall, initial encounter Disposition: Admitted As Inpatient Condition: Fair Referrals: Kristine Galloway MD [Primary Care Provider] - Time of Disposition: 21:05 General Adult HPI - General Stated complaint: . Time Seen by Provider: 08/06/17 18:09 Source: patient Mode of arrival: EMS Limitations: no limitations Nursing Notes Reviewed: Yes Vital Signs Reviewed: Yes - History of Present Illness HPI Narrative: 82-year-old male with a history of hypertension, thoracic aneurysm, COPD presents for evaluation of chest pain and syncope. Patient states that he felt like he was given a pass out earlier today. Patient noted that while he was on the commode he did pass out and lose consciousness. This was unwitnessed. Patient states that he hit his chest. Patient only prodrome was lightheadedness. No nausea or vomiting. Patient has have chest pain is worse with deep inspiration. Patient's typically on 2 L nasal cannula at home. Patient denies a productive cough. No fevers. No abdominal pain. No nausea vomiting or diaphoresis. Denies being on any blood thinners. - Related Data Home Medications Medication Instructions Recorded Confirmed Albuterol Sulfate [Albuterol 2 puff IH Q4H PRN 12/17/14 08/06/17 Inhaler] Aspirin 325 mg PO DAILY 12/17/14 08/06/17 Cholecalciferol (D-3) 1,000 unit PO DAILY 12/17/14 08/06/17 Diltiazem HCl [Diltiazem 24Hr Cd] 240 mg PO DAILY 12/17/14 08/06/17 Latanoprost [Xalatan] 1 drop BOTH EYES HS 12/17/14 08/06/17 Tiotropium [Spiriva] 18 mcg IH 0700 12/17/14 08/06/17 Alfuzosin HCl [Uroxatral] 10 mg PO DAILY 05/31/16 08/06/17 Budesonide/Formoterol 160/4.5 2 puff IH BIDR 05/31/16 08/06/17 [Symbicort 160/4.5] Oxygen 2 l NS AD 05/31/16 08/06/17 Ubidecarenone [Co Q-10] 200 mg PO DAILY 05/31/16 08/06/17 Calcium Polycarbophil [Fiber 1,250 mg PO QID 08/06/17 08/06/17 Laxative] Dorzolamide [Trusopt] 1 drop BOTH EYES BID 08/06/17 08/06/17 Gabapentin [Neurontin] 100 mg PO TID 08/06/17 08/06/17 Omeprazole [PriLOSEC] 20 mg PO DAILY 08/06/17 08/06/17 Allergies Allergy/AdvReac Type Severity Reaction Status Date / Time Penicillins Allergy Swelling Verified 12/08/14 10:28 of Lip/Tongue/Throat Otxkydg-Tvf-Kqf Reductase AdvReac Muscle Pain Verified 08/06/17 19:17 Inhibitor [Statins] All systems ED: reviewed and negative except as stated. Constitutional: Denies: fever Cardiovascular: Reports: chest pain Respiratory: Reports: dyspnea. Denies: cough, sputum production Gastrointestinal: Denies: abdominal pain, nausea, vomiting Past Medical History - Past Medical History Source: patient Medical history: Reports: COPD, coronary artery disease, diabetes, GERD, glaucoma, hyperlipidemia, hypertension, valvular heart disease (bicuspid aortic valve with dilated aortic root) Surgical history: Reports: cholecystectomy Psychiatric history: Reports: no psych history - Social History Smoking Status: Never smoker Smokeless Tobacco Status: No Alcohol use: Reports: none Drug use: Reports: none Physical Exam - General Limitations: no limitations General appearance: alert, in no apparent distress - Head Head exam: atraumatic, normocephalic - Eye Eye exam: Present: normal appearance, PERRL, EOMI - ENT ENT exam: normal exam - Neck Neck exam: Present: normal inspection - Chest Chest inspection: Present: normal inspection, symmetric chest wall rise - Respiratory Respiratory exam: Present: respiratory distress, prolonged expiratory phase. Absent: accessory muscle use - Cardiovascular Cardiovascular exam: Present: regular rate, normal rhythm, systolic murmur (3/6 RSB) - Abdominal Exam Abdominal exam: Present: soft, Non-Tender - Extremities Exam Extremities exam: Present: normal inspection. Absent: pedal edema - Back Exam Back exam: Present: normal inspection - Neurological Exam Neurological exam: Present: alert, oriented X3, CN II-XII intact - Psychiatric Psychiatric exam: Present: normal affect, normal mood Course Course Narrative: Patient seen and examined. Patient will get basic screening cardiopulmonary evaluation with EKG, chest x-ray. Patient does have a history of thoracic aneurysm and will need a Cta of the chest. Disposition admission. - Reevaluation(s) Reevaluation #1: Patient states that his breathing did improve after the breathing treatment. Family at bedside states that the patient had unwitnessed syncopal episode. Patient did get out of the shower. Patient sat on the commode. Family heard him fall. Patient had a lucid interval seem initially with the following the syncope. Time: 19:21 Reevaluation #2: Patient is requiring increased oxygen requirement. Patient was placed on BiPAP. Patient appears to be splinting related the pain in his chest. Appears to be more chest wall pain related to trauma and falling. Patient also has pneumonia. Patient be treated for healthcare associated pneumonia. Time: 20:16 Reevaluation #3: Awaiting the patient's CT [place] chest. Patient's symptoms likely result of his pneumonia however the patient does have a diagnosis of a thoracic aneurysm in the past. Will need to ensure the patient does not have a dissection given his pain and fall. Time: 20:48 Vital Signs Temperature 98.1 F 08/06/17 18:21 Pulse Rate 80 08/06/17 18:21 Respiratory Rate 18 08/06/17 18:21 Blood Pressure 120/74 08/06/17 18:21 O2 Sat by Pulse Oximetry 93 08/06/17 18:21 Temperature 98.1 F 08/06/17 18:21 Pulse Rate 82 08/06/17 20:54 Respiratory Rate 30 08/06/17 20:54 Blood Pressure 124/79 08/06/17 20:54 O2 Sat by Pulse Oximetry 99 08/06/17 20:54 Oxygen Delivery Oxygen Delivery Room Air Medical Decision Making - [facility] Narrative Medical decision making narrative: 82-year-old male persists for evaluation of syncope. Patient had unwitnessed single episode. Patient does have risk factors of heart disease. Patient says really had chest pain. Patient chest pain appeared to a cure after the syncopal episode in the fall. Patient appeared to be splinting. Patient's had worsening dyspnea over the past few days with a cough. Patient does have an increasing nausea requirement with chest x-ray findings concerning for pneumonia. Patient was placed on BiPAP as well as appropriate pain control to help with his work of breathing. Patient also has a history of thoracic aneurysm and at the time of this dictation the patient be signed out to the oncoming provider to follow-up those results. Patient was admitted to the hospital service and stable condition. Patient was treated for healthcare associated pneumonia. Family at bedside as was patient agreed with plan of care. - Lab Data Lab results reviewed: Yes I reviewed the patient's lab results. Result diagrams: 08/06/17 19:35 08/06/17 19:35 Lab Results 08/06/17 08/06/17 08/06/17 Range/Units 19:35 19:35 19:35 WBC 11.5 H (4.3-11.1) K/mcL RBC 4.18 L (4.19-5.50) M/mcL Hgb 12.9 (12.9-16.9) g/dL Hct 40.4 (37.5-50.1) % MCV 96.7 (83.0-100.0) fL MCH 30.9 (28.0-33.3) pg MCHC 31.9 (31.6-35.5) g/dL RDW 14.3 (11.5-14.5) % Plt Count 192 (140-400) K/mcL MPV 10.7 (9.4-12.4) fL Immature Gran % 0.5 (0-4) % Seg Neutrophils % 86.3 % Lymphocytes % 5.8 % Monocytes % 6.9 % Eosinophils % 0.2 % Basophils % 0.3 % Neutrophils # 9.9 H (1.6-8.9) K/mcL Lymphocytes # 0.7 (0.6-4.6) K/mcL Monocytes # 0.8 (0.0-1.3) K/mcL Eosinophils # 0.0 (0.0-0.6) K/mcL Basophils # 0.0 (0.0-0.2) K/mcL PT 15.8 H (9.4-12.1) Seconds INR 1.5 Sodium 139 (136-145) mEq/L Potassium 3.8 (3.5-5.1) mEq/L Chloride 107 (98-107) mEq/L Carbon Dioxide 24 (23-29) mEq/L BUN 24 H (8-23) mg/dL Creatinine 1.31 H (0.70-1.30) mg/dL Est GFR ( Amer) > 60 (> 60) Est GFR (Non-Af Amer) 53 L (> 60) BUN/Creatinine Ratio 18 (6-26) Glucose 129 H (70-105) mg/dL Calculated Osmolality 294 (280-300) Lactic Acid (0.5-2.2) mmol/L Calcium 9.4 (8.6-10.3) mg/dL Total Bilirubin 1.3 H (0.3-1.0) mg/dL AST 15 (13-39) Units/L ALT 12 (7-52) Units/L Alkaline Phosphatase 81 (34-104) Units/L Troponin I 0.03 (< 0.04) ng/mL Serum Total Protein 7.1 (6.4-8.9) g/dL Albumin 4.0 (3.5-5.7) g/dL Globulin 3.1 (2.4-3.5) g/dL Albumin/Globulin Ratio 1.3 (1.1-2.2) 08/06/17 Range/Units 20:07 WBC (4.3-11.1) K/mcL RBC (4.19-5.50) M/mcL Hgb (12.9-16.9) g/dL Hct (37.5-50.1) % MCV (83.0-100.0) fL MCH (28.0-33.3) pg MCHC (31.6-35.5) g/dL RDW (11.5-14.5) % Plt Count (140-400) K/mcL MPV (9.4-12.4) fL Immature Gran % (0-4) % Seg Neutrophils % % Lymphocytes % % Monocytes % % Eosinophils % % Basophils % % Neutrophils # (1.6-8.9) K/mcL Lymphocytes # (0.6-4.6) K/mcL Monocytes # (0.0-1.3) K/mcL Eosinophils # (0.0-0.6) K/mcL Basophils # (0.0-0.2) K/mcL PT (9.4-12.1) Seconds INR Sodium (136-145) mEq/L Potassium (3.5-5.1) mEq/L Chloride (98-107) mEq/L Carbon Dioxide (23-29) mEq/L BUN (8-23) mg/dL Creatinine (0.70-1.30) mg/dL Est GFR ( Amer) (> 60) Est GFR (Non-Af Amer) (> 60) BUN/Creatinine Ratio (6-26) Glucose (70-105) mg/dL Calculated Osmolality (280-300) Lactic Acid 1.1 (0.5-2.2) mmol/L Calcium (8.6-10.3) mg/dL Total Bilirubin (0.3-1.0) mg/dL AST (13-39) Units/L ALT (7-52) Units/L Alkaline Phosphatase (34-104) Units/L Troponin I (< 0.04) ng/mL Serum Total Protein (6.4-8.9) g/dL Albumin (3.5-5.7) g/dL Globulin (2.4-3.5) g/dL Albumin/Globulin Ratio (1.1-2.2) - Radiology Data Radiology results reviewed: Yes I reviewed the patient's radiology results. Chest X-Ray 08/06/17 18:24 IMPRESSION: 1. Worsening left basilar airspace disease concerning for pneumonia. Recommend chest radiograph in 8 weeks confirm resolution. D/ / Dar Sotelo MD / Dar Sotelo MD Interpreting Provider: Dar Sotelo MD - EKG Data EKG #1 EKG attestation: Yes I reviewed and interpreted this EKG. EKG shows normal: sinus rhythm Rate: normal Rhythm: NSR [place]/QRS: left axis deviation T wave inversions noted in: v1 Interpretation: no acute changes, nonspecific ST-T wave changes S.B.A.R. - S.B.A.R. Situation: Demographics Background: Presenting Complaint Assessment: Vital Signs, Course and respsone to treatment, Patient/Family Expectation Recommendation: Barrier(s) to disposition S.B.A.R. Report Given to: Dr. Pat Pierce Repor Time: 21:06
[2017-08-06] MEDS ORDERED: Isovue-370 500 ML INFUS..BTL IV ONE (18:25)
[2017-08-06] MEDS ORDERED: Ipratropium/Albuterol Neb 3 ML IH ONE (18:26)
[2017-08-06] MEDS ORDERED: Nitroglycerin 1 INCH/GM PACKET TP ONE (18:27)
[2017-08-06] MEDS ORDERED: *HR* FentaNYL (PF) 100 MCG/2 ML VIAL IVP ONE ×2 (19:58→23:01)
[2017-08-06] MEDS ORDERED: Azithromycin 500 MG in D5% in Water 250 ML IVPB ONE (19:59)
[2017-08-06] MEDS ORDERED: cefTRIAXone 2,000 MG in Water for inj. (sterile) 20 ML IVP ONE (19:59)
[2017-08-06 20:03] LABS: Basophils % 0.3 %; Eosinophils % 0.2 %; Hematocrit 40.4 % (37.5-50.1); Hemoglobin 12.9 g/dL (12.9-16.9); Immature Granulocytes % 0.5 % (0-4); Lymphocytes # 0.7 K/mcL (0.6-4.6); Lymphocytes % 5.8 %; Mean Corpuscular HGB Conc 31.9 g/dL (31.6-35.5); Mean Corpuscular Hemoglobin 30.9 pg (28.0-33.3); Mean Corpuscular Volume 96.7 fL (83.0-100.0); Mean Platelet Volume 10.7 fL (9.4-12.4); Monocytes # 0.8 K/mcL (0.0-1.3); Monocytes % 6.9 %; Neutrophils # 9.9 K/mcL (1.6-8.9); Platelet Count 192 K/mcL (140-400); Red Blood Count 4.18 M/mcL (4.19-5.50); Red Cell Distribution Width 14.3 % (11.5-14.5); Segmented Neutrophils % 86.3 %
[2017-08-06 20:05] LABS: INR 1.5; Prothrombin Time 15.8 Seconds (9.4-12.1)
[2017-08-06 20:25] LABS: Troponin I 0.03 ng/mL (< 0.04)
[2017-08-06 20:30] LABS: Alanine Aminotransferase 12 Units/L (7-52); Albumin/Globulin Ratio 1.3 (1.1-2.2); Alkaline Phosphatase 81 Units/L (34-104); Aspartate Amino Transferase 15 Units/L (13-39); BUN/Creatinine Ratio 18 (6-26); Bilirubin,Total 1.3 mg/dL (0.3-1.0); Blood Urea Nitrogen 24 mg/dL (8-23); Calcium 9.4 mg/dL (8.6-10.3); Carbon Dioxide 24 mEq/L (23-29); Chloride 107 mEq/L (98-107); Globulin 3.1 g/dL (2.4-3.5); Glucose 129 mg/dL (70-105); Osmolality,Calculated 294 (280-300); Potassium 3.8 mEq/L (3.5-5.1); Sodium 139 mEq/L (136-145); Total Protein 7.1 g/dL (6.4-8.9); eGFR For African Americans > 60 (> 60); eGFR For Non-African Americans 53 (> 60)
[2017-08-06] MEDS ORDERED: 0.9 % Sodium Chloride 500 ML IVC ONE (20:36)
--- NOTE | 2017-08-06 20:57 | Emergency Department Note ---
Disposition Clinical Impression: Syncope, Pneumonia, Fall, Hypoxia Disposition: Admitted As Inpatient Condition: Fair General Adult HPI - General Chief complaint: ED Syncope Stated complaint: Syncope/Fall/CP Time Seen by Provider: 08/06/17 18:09 Source: patient Mode of arrival: EMS Limitations: no limitations - History of Present Illness Pain Scale: 3 - Related Data Home Medications Medication Instructions Recorded Confirmed Albuterol Sulfate [Albuterol 2 puff IH Q4H PRN 12/17/14 08/06/17 Inhaler] Aspirin 325 mg PO DAILY 12/17/14 08/06/17 Cholecalciferol (D-3) 1,000 unit PO DAILY 12/17/14 08/06/17 Diltiazem HCl [Diltiazem 24Hr Cd] 240 mg PO DAILY 12/17/14 08/06/17 Latanoprost [Xalatan] 1 drop BOTH EYES HS 12/17/14 08/06/17 Tiotropium [Spiriva] 18 mcg IH 0700 12/17/14 08/06/17 Alfuzosin HCl [Uroxatral] 10 mg PO DAILY 05/31/16 08/06/17 Budesonide/Formoterol 160/4.5 2 puff IH BIDR 05/31/16 08/06/17 [Symbicort 160/4.5] Oxygen 2 l NS AD 05/31/16 08/06/17 Ubidecarenone [Co Q-10] 200 mg PO DAILY 05/31/16 08/06/17 Calcium Polycarbophil [Fiber 1,250 mg PO QID 08/06/17 08/06/17 Laxative] Dorzolamide [Trusopt] 1 drop BOTH EYES BID 08/06/17 08/06/17 Gabapentin [Neurontin] 100 mg PO TID 08/06/17 08/06/17 Omeprazole [PriLOSEC] 20 mg PO DAILY 08/06/17 08/06/17 Allergies Allergy/AdvReac Type Severity Reaction Status Date / Time Penicillins Allergy Swelling Verified 12/08/14 10:28 of Lip/Tongue/Throat Ewlunkn-Ltn-Loe Reductase AdvReac Muscle Pain Verified 08/06/17 19:17 Inhibitor [Statins] Constitutional: Denies: fever Cardiovascular: Reports: chest pain Respiratory: Reports: dyspnea. Denies: cough, sputum production Gastrointestinal: Denies: abdominal pain, nausea, vomiting Past Medical History - Past Medical History Medical history: Reports: COPD, coronary artery disease, diabetes, GERD, glaucoma, hyperlipidemia, hypertension, valvular heart disease (bicuspid aortic valve with dilated aortic root) Surgical history: Reports: cholecystectomy Psychiatric history: Reports: no psych history - Social History Smoking Status: Never smoker Smokeless Tobacco Status: No Alcohol use: Reports: none Drug use: Reports: none Physical Exam - General Limitations: no limitations General appearance: alert, in no apparent distress Course Vital Signs Temperature 98.1 F 08/06/17 18:21 Pulse Rate 80 08/06/17 18:21 Respiratory Rate 18 08/06/17 18:21 Blood Pressure 120/74 08/06/17 18:21 O2 Sat by Pulse Oximetry 93 08/06/17 18:21 Temperature 96.7 F L 08/09/17 11:07 Pulse Rate 92 08/09/17 11:07 Respiratory Rate 17 08/09/17 11:07 Blood Pressure 130/71 08/09/17 11:07 O2 Sat by Pulse Oximetry 90 08/09/17 11:07 Oxygen Delivery Oxygen Delivery Bipap Medical Decision Making - Lab Data Result diagrams: 08/09/17 05:04 08/09/17 05:04 Lab Results 08/06/17 08/06/17 08/06/17 Range/Units 19:35 19:35 19:35 WBC 11.5 H (4.3-11.1) K/mcL RBC 4.18 L (4.19-5.50) M/mcL Hgb 12.9 (12.9-16.9) g/dL Hct 40.4 (37.5-50.1) % MCV 96.7 (83.0-100.0) fL MCH 30.9 (28.0-33.3) pg MCHC 31.9 (31.6-35.5) g/dL RDW 14.3 (11.5-14.5) % Plt Count 192 (140-400) K/mcL MPV 10.7 (9.4-12.4) fL Immature Gran % 0.5 (0-4) % Seg Neutrophils % 86.3 % Lymphocytes % 5.8 % Monocytes % 6.9 % Eosinophils % 0.2 % Basophils % 0.3 % Neutrophils # 9.9 H (1.6-8.9) K/mcL Lymphocytes # 0.7 (0.6-4.6) K/mcL Monocytes # 0.8 (0.0-1.3) K/mcL Eosinophils # 0.0 (0.0-0.6) K/mcL Basophils # 0.0 (0.0-0.2) K/mcL PT 15.8 H (9.4-12.1) Seconds INR 1.5 Sodium 139 (136-145) mEq/L Potassium 3.8 (3.5-5.1) mEq/L Chloride 107 (98-107) mEq/L Carbon Dioxide 24 (23-29) mEq/L BUN 24 H (8-23) mg/dL Creatinine 1.31 H (0.70-1.30) mg/dL Est GFR ( Amer) > 60 (> 60) Est GFR (Non-Af Amer) 53 L (> 60) BUN/Creatinine Ratio 18 (6-26) Glucose 129 H (70-105) mg/dL Calculated Osmolality 294 (280-300) Lactic Acid (0.5-2.2) mmol/L Calcium 9.4 (8.6-10.3) mg/dL Total Bilirubin 1.3 H (0.3-1.0) mg/dL AST 15 (13-39) Units/L ALT 12 (7-52) Units/L Alkaline Phosphatase 81 (34-104) Units/L Troponin I 0.03 (< 0.04) ng/mL Serum Total Protein 7.1 (6.4-8.9) g/dL Albumin 4.0 (3.5-5.7) g/dL Globulin 3.1 (2.4-3.5) g/dL Albumin/Globulin Ratio 1.3 (1.1-2.2) 08/06/17 Range/Units 20:07 WBC (4.3-11.1) K/mcL RBC (4.19-5.50) M/mcL Hgb (12.9-16.9) g/dL Hct (37.5-50.1) % MCV (83.0-100.0) fL MCH (28.0-33.3) pg MCHC (31.6-35.5) g/dL RDW (11.5-14.5) % Plt Count (140-400) K/mcL MPV (9.4-12.4) fL Immature Gran % (0-4) % Seg Neutrophils % % Lymphocytes % % Monocytes % % Eosinophils % % Basophils % % Neutrophils # (1.6-8.9) K/mcL Lymphocytes # (0.6-4.6) K/mcL Monocytes # (0.0-1.3) K/mcL Eosinophils # (0.0-0.6) K/mcL Basophils # (0.0-0.2) K/mcL PT (9.4-12.1) Seconds INR Sodium (136-145) mEq/L Potassium (3.5-5.1) mEq/L Chloride (98-107) mEq/L Carbon Dioxide (23-29) mEq/L BUN (8-23) mg/dL Creatinine (0.70-1.30) mg/dL Est GFR ( Amer) (> 60) Est GFR (Non-Af Amer) (> 60) BUN/Creatinine Ratio (6-26) Glucose (70-105) mg/dL Calculated Osmolality (280-300) Lactic Acid 1.1 (0.5-2.2) mmol/L Calcium (8.6-10.3) mg/dL Total Bilirubin (0.3-1.0) mg/dL AST (13-39) Units/L ALT (7-52) Units/L Alkaline Phosphatase (34-104) Units/L Troponin I (< 0.04) ng/mL Serum Total Protein (6.4-8.9) g/dL Albumin (3.5-5.7) g/dL Globulin (2.4-3.5) g/dL Albumin/Globulin Ratio (1.1-2.2) Attestation Statement - Attestation Attestation: I examined this patient and my medical decision-making was reviewed with the Resident Physician, Dr. Hess. I agree with the documented findings, disposition and treatment plan as described except to the extent set forth below. Patient is an 82-year-old white male brought in today after a syncopal episode and shortness of breath. According to family he is not having some increased oxygen requirements at home [place] normally on 2 L nasal cannula and is been feeling more short of breath. Patient today had a syncopal episode while on the commode and fell forward striking his anterior chest on the edge of this time. Since that time patient's been complaining of reproducible chest pain with palpation and deep breathing and visibly short of breath. Patient denies any other injuries related to syncopal episode. Patient is hypoxic on room air and was placed on 5 L nasal cannula oxygen on arrival. I agree with patient's physical exam findings as documented. EKGs unremarkable for any acute ischemia. Chest x-ray shows questionable left E[place] infiltrate. No pneumothorax or any other abnormal finding was seen on x- ray. Patient's lab evaluation shows mild AK I otherwise within normal limits. We are awaiting chest CT to rule out any complications of his thoracic aortic aneurysm or possible pneumothorax not seen on chest x-ray. Patient was placed on BiPAP and respiratory status has stabilized. He was started on IV antibiotics for his pneumonia. Patient will be admitted here just awaiting CT results. He will be signed out to Dr. Mchugh in the [facility]pe weigh operator team for follow-up on CT and final disposition. Patient is hemodynamically stable at time of sign out
[2017-08-06] MEDS ORDERED: D5% in Water 1,000 ML IVC PRN (21:22)
[2017-08-06] MEDS ORDERED: Dextrose Gel 15 GM/37.5 ML TUBE PO PRN ×2 (21:22)
[2017-08-06] MEDS ORDERED: *HR* Dextrose 50 % in Water (Syg) 50 ML SYRINGE IVP PRN (21:22)
--- NOTE | 2017-08-06 21:22 | Internal Med History&Physical ---
Date of Encounter: 08/06/17 Time of Encounter: 21:20 Internal Medicine - H&P: HPI Chief complaint: Syncope Admitted From: Emergency Dept Plans for Post Hospital Care: Home History of present illness: Mr. 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 The patient was on the commode when he passed out and reportedly lost consciousness. This was unwitnessed and unknown how long he was down for.. The patient was heard phone by the family. He felt lightheadedness prior to the episode reportedly. The patient says he hit his chest and complains of pain with inspiration. No nausea , diaphoresis, vomiting. He has a productive cough as well. Reports subjective fevers. This has been going on for couple days. No headache, blurry vision, numbness, tingling, abdominal pain, diarrhea, constipation, urinary symptoms. When he presented to the ED he was noted to be hypoxic in the 80s and needed BiPAP. Workup revealed mild leukocytosis, mild seamus with a left lower lobe infiltrate. He was given nebulizers, Rocephin and Zithromax. Past Med Surg Social Fam HX - Past Medical History Medical history: COPD, coronary artery disease, diabetes, GERD, glaucoma, hyperlipidemia, hypertension, valvular heart disease (bicuspid aortic valve with dilated aortic root) Psychiatric history: no psych history - Past Surgical History Surgical History: cholecystectomy - Social History Smoking Status: Never smoker Smokeless Tobacco Status: No Alcohol use: none Drug use: none - Family History Sister Living Status: Still Living Hx Family Respiratory Disorders: Yes (copd) Father Hx Family Cancer: Yes (leukemia) Mother Hx Family Neurologic Disorders: Yes (brain aneurysm) Internal Medicine - H&P: Meds Albuterol Sulfate [Albuterol Inhaler] 2 puff IH Q4H PRN 12/17/14 [History] Aspirin 325 mg PO DAILY 12/17/14 [History] Cholecalciferol (D-3) 1,000 unit PO DAILY 12/17/14 [History] Diltiazem HCl [Diltiazem 24Hr Cd] 240 mg PO DAILY 12/17/14 [History] Latanoprost [Xalatan] 1 drop BOTH EYES HS 12/17/14 [History] Tiotropium [Spiriva] 18 mcg IH 0700 12/17/14 [History] Alfuzosin HCl [Uroxatral] 10 mg PO DAILY 05/31/16 [History] Budesonide/Formoterol 160/4.5 [Symbicort 160/4.5] 2 puff IH BIDR 05/31/16 [ History] Oxygen 2 l NS AD 05/31/16 [History] Ubidecarenone [Co Q-10] 200 mg PO DAILY 05/31/16 [History] Calcium Polycarbophil [Fiber Laxative] 1,250 mg PO QID 08/06/17 [History] Dorzolamide [Trusopt] 1 drop BOTH EYES BID 08/06/17 [History] Gabapentin [Neurontin] 100 mg PO TID 08/06/17 [History] Omeprazole [PriLOSEC] 20 mg PO DAILY 08/06/17 [History] 3 Allergy/AdvReac Type Severity Reaction Status Date / Time Penicillins Allergy Swelling Verified 12/08/14 10:28 of Lip/Tongue/Throat Fgocmap-Smy-Fto Reductase AdvReac Muscle Pain Verified 08/06/17 19:17 Inhibitor [Statins] All Systems PM: A 10-system review of systems was performed and is negative for pertinent findings except as documented above in the HPI. Review of systems: All systems reviewed are negative except for as mentioned above - Constitutional Vitals: Temp Pulse Resp BP Pulse Ox 98.1 F 82 30 124/79 99 08/06/17 18:21 08/06/17 20:54 08/06/17 20:54 08/06/17 20:54 08/06/17 20:54 Exam: GEN: NAD HEENT: AT, NC, No cyanosis, oral mucosa is moist, No JVD Lymphatics: No lymphadenoapthy Eyes: Extrocular muscles intact, anicteric CVS:RRR. S1, S2, No m/r/g RESP: Diminished with coarse breath sounds on the left posteriorly. ABD: Soft, NT, ND, +BS EXT: No edema, No rashes, 2+ DP NEURO: Nonfocal, CN II-XII intact, No focal motor or sensory deficits Psych: Cooperative, Not anxious or depressed Internal Med - H&P Results - Labs CBC & Chem 7: 08/06/17 19:35 08/06/17 19:35 Labs: Short CBC 08/06/17 Range/Units 19:35 WBC 11.5 H (4.3-11.1) K/mcL Hgb 12.9 (12.9-16.9) g/dL Hct 40.4 (37.5-50.1) % Plt Count 192 (140-400) K/mcL Neutrophils # 9.9 H (1.6-8.9) K/mcL BMP 08/06/17 19:35 Sodium 139 Potassium 3.8 Chloride 107 Carbon Dioxide 24 BUN 24 H Creatinine 1.31 H Glucose 129 H Calcium 9.4 Cardiac Enzymes 08/06/17 Range/Units 19:35 Troponin I 0.03 (< 0.04) ng/mL Liver Function 08/06/17 Range/Units 19:35 Total Bilirubin 1.3 H (0.3-1.0) mg/dL AST 15 (13-39) Units/L ALT 12 (7-52) Units/L Alkaline Phosphatase 81 (34-104) Units/L Albumin 4.0 (3.5-5.7) g/dL - Impressions ITS Impressions Chest X-Ray 08/06/17 18:24 IMPRESSION: 1. Worsening left basilar airspace disease concerning for pneumonia. Recommend chest radiograph in 8 weeks confirm resolution. D/ / Dar Sotelo MD / Dar Sotelo MD Interpreting Provider: Dar Sotelo MD - Assessment and plan (1) Community acquired pneumonia Current Visit: No Status: Acute Assessment and plan: Will continue azithromax/rocephin. check sputum cultures. check urine strep/ legionella. f/u on blood cultures. O2 support. Wean as tolerated. Nebs. Qualifiers: Laterality: left Lung location: unspecified part of lung Qualified Code(s ): J18.9 - Pneumonia, unspecified organism (2) Syncope Current Visit: Yes Status: Acute Assessment and plan: CT head pending from the ED. Sounds more like a vasovagal episode. Possibly exacerbated by the current respiratory symptoms. Will trend enzymes. Put on tele. check echo. carotid duplex. TSH. Orthostatics. Qualifiers: Syncope type: vasovagal syncope Qualified Code(s): R55 - Syncope and collapse (3) SEAMUS (acute kidney injury) Current Visit: Yes Status: Acute Assessment and plan: this is mild. Will gently hydrate and check labs in am. Avoid nephrotoxins. (4) COPD (chronic obstructive pulmonary disease) Current Visit: No Status: Acute Assessment and plan: No wheezing on exam. Nebs. O2 support. On 2 L chronically. Qualifiers: COPD type: unspecified COPD Qualified Code(s): J44.9 - Chronic obstructive pulmonary disease, unspecified (5) BPH (benign prostatic hyperplasia) Current Visit: No Status: Acute Assessment and plan: c/w home meds Qualifiers: Lower urinary tract symptom presence: symptoms absent Qualified Code(s): N40.0 - Benign prostatic hyperplasia without lower urinary tract symptoms (6) HTN (hypertension) Current Visit: No Status: Acute Assessment and plan: Resume home meds. BP stable Qualifiers: Hypertension type: essential hypertension Qualified Code(s): I10 - Essential (primary) hypertension (7) T2DM (type 2 diabetes mellitus) Current Visit: No Status: Acute Assessment and plan: Controlled with diet and exercise. Will put on SSI and accucheks. Qualifiers: Diabetes mellitus terminal clerk insulin use: without intermediate use Diabetes mellitus complication status: without complication Qualified Code(s): E11.9 - Type 2 diabetes mellitus without complications (8) DVT prophylaxis Current Visit: No Status: Acute Assessment and plan: heparin SQ. - Time Spent With Patient Total time spent is greater than 50% in coordination of care (as documented) at patient's floor/unit and/or counseling patient:
[2017-08-06] MEDS: Budesonide/Formoterol 160/4.5 MDI IH SCH (22:34)
[2017-08-06] MEDS: Ipratropium/Albuterol Neb 3 ML IH SCH (22:34)
[2017-08-06] MEDS: 0.9 % Sodium Chloride 1,000 ML IVC SCH (23:09)
[2017-08-06] MEDS: *HR* Heparin 5,000 UNIT/ML VIAL SQ SCH (23:10)
[2017-08-06] MEDS: *HR* OxyCODONE/APAP 7.5/325 TABLET PO PRN (23:43)
[2017-08-07 02:08] LABS: Basophils % 0.3 %; Eosinophils % 0.1 %; Hematocrit 35.9 % (37.5-50.1); Hemoglobin 11.5 g/dL (12.9-16.9); Immature Granulocytes % 0.3 % (0-4); Lymphocytes # 0.8 K/mcL (0.6-4.6); Lymphocytes % 7.4 %; Mean Corpuscular Hemoglobin 30.7 pg (28.0-33.3); Mean Platelet Volume 10.7 fL (9.4-12.4); Neutrophils # 8.4 K/mcL (1.6-8.9); Platelet Count 178 K/mcL (140-400); Red Blood Count 3.74 M/mcL (4.19-5.50); Red Cell Distribution Width 14.4 % (11.5-14.5); Segmented Neutrophils % 81.9 %
[2017-08-07 02:33] LABS: BUN/Creatinine Ratio 19 (6-26); Blood Urea Nitrogen 20 mg/dL (8-23); Calcium 8.6 mg/dL (8.6-10.3); Carbon Dioxide 23 mEq/L (23-29); Chloride 107 mEq/L (98-107); Glucose 114 mg/dL (70-105); Magnesium 1.9 mg/dL (1.6-2.6); Osmolality,Calculated 291 (280-300); Potassium 3.8 mEq/L (3.5-5.1); Sodium 139 mEq/L (136-145); eGFR For African Americans > 60 (> 60); eGFR For Non-African Americans > 60 (> 60)
[2017-08-07 02:45] LABS: Thyroid Stimulating Hormone 2.223 mcIU/mL (0.340-5.600)
[2017-08-07] MEDS: Ipratropium/Albuterol Neb 3 ML IH SCH ×4 (03:56→22:00)
[2017-08-07 04:33] LABS: ABG Base Excess -1 mEq/L (-2 to 3); ABG HCO3 23 mEq/L (21-27); ABG Oxygen Saturation 94 % (95-98); ABG PCO2 36 mmHg (35-45); ABG PH 7.43 pH Units (7.32-7.45); ABG PO2 69 mmHg (85-104); ABG TCO2 25 mEq/L (20-26); Blood Gas PEEP 6 cm H2O
[2017-08-07] MEDS: *HR* Heparin 5,000 UNIT/ML VIAL SQ SCH ×3 (06:39→21:45)
[2017-08-07] MEDS: Insulin LISPRO 300 UNITS/3 ML VIAL SQ SCH ×4 (08:39→21:49)
[2017-08-07] MEDS: cefTRIAXone 1,000 MG in Water for inj. (sterile) 20 ML 10 ML IVP SCH (08:40)
[2017-08-07] MEDS: Diltiazem CD (24hr) 240 MG CAPSULE PO SCH (08:41)
[2017-08-07] MEDS: Cholecalciferol (D-3) 1,000 UNIT TABLET PO SCH (08:41)
[2017-08-07] MEDS: Gabapentin 100 MG CAPSULE PO SCH ×3 (08:41→21:19)
[2017-08-07] MEDS: Aspirin Enteric Coated 325 MG Tablet PO SCH (08:41)
[2017-08-07] MEDS: 0.9 % Sodium Chloride 1,000 ML IVC SCH ×2 (08:42→21:17)
[2017-08-07] MEDS ORDERED: Aspirin 325 MG TABLET PO SCH (09:00)
[2017-08-07] MEDS: Dorzolamide OPTH 10 ML BOTTLE BOTH EYES SCH ×2 (11:09→21:17)
[2017-08-07] MEDS: Budesonide/Formoterol 160/4.5 MDI IH SCH ×2 (11:23→22:00)
[2017-08-07] MEDS: *HR* OxyCODONE/APAP 7.5/325 TABLET PO PRN (14:59)
--- NOTE | 2017-08-07 15:53 | Internal Med Progress Note ---
Date of Encounter: 08/07/17 Time of Encounter: 15:51 - Assessment and plan (1) Community acquired pneumonia Current Visit: No Status: Acute Assessment and plan: Acute on chronic hypoxic respiratory failure secondary to acute COPD exacerbation due to community-acquired pneumonia/unknown agent Continue azithromax/rocephin day #2 Start Solu-Medrol Pending: sputum cultures, urine strep/legionella. f/u on blood cultures. O2 support. Wean as tolerated. Nebs. IV fluids Qualifiers: Laterality: left Lung location: unspecified part of lung Qualified Code(s ): J18.9 - Pneumonia, unspecified organism (2) COPD (chronic obstructive pulmonary disease) Current Visit: No Status: Acute Assessment and plan: Steroids On 2 L chronically. Qualifiers: COPD type: unspecified COPD Qualified Code(s): J44.9 - Chronic obstructive pulmonary disease, unspecified (3) BPH (benign prostatic hyperplasia) Current Visit: No Status: Acute Assessment and plan: c/w home meds Qualifiers: Lower urinary tract symptom presence: symptoms absent Qualified Code(s): N40.0 - Benign prostatic hyperplasia without lower urinary tract symptoms (4) HTN (hypertension) Current Visit: No Status: Acute Assessment and plan: stable Qualifiers: Hypertension type: essential hypertension Qualified Code(s): I10 - Essential (primary) hypertension (5) T2DM (type 2 diabetes mellitus) Current Visit: No Status: Acute Assessment and plan: SSI and accucheks. Qualifiers: Diabetes mellitus mcc insulin use: without director radio news use Diabetes mellitus complication status: without complication Qualified Code(s): E11.9 - Type 2 diabetes mellitus without complications (6) Syncope Current Visit: Yes Status: Acute Assessment and plan: Syncopal episode likely related to pneumonia and hypoxia. CT head No acute findings. Fall precautions Qualifiers: Syncope type: vasovagal syncope Qualified Code(s): R55 - Syncope and collapse (7) PHILLIP (acute kidney injury) Current Visit: Yes Status: Acute Assessment and plan: Acute renal failure likely secondary to infection Will gently hydrate. Avoid nephrotoxins. - Time Spent With Patient Total time spent is greater than 50% in coordination of care (as documented) at patient's floor/unit and/or counseling patient: - Subjective Interval history: Saturation of oxygen as dropped down to the 80s prior to admission, denies any chest pain, feels very short of breath, denies any abdominal pain, complained of some dysuria, no diarrhea or fevers - Constitutional Vitals: Temp Pulse Resp BP Pulse Ox 97.7 F 78 18 104/52 91 08/07/17 11:38 08/07/17 11:38 08/07/17 11:38 08/07/17 11:38 08/07/17 11:38 General appearance: Present: A&O X 3 - Head Head exam: Present: atraumatic, normocephalic - Eye Eye exam: Present: PERRL, conjuntiva pink, sclera anicteric Pupils: Present: PERRL - Neck Neck exam general surgery: Present: supple, trachea midline. Absent: lymphadenopathy - Respiratory Respiratory exam: Present: CTAB, rales (Left basilar crackles with minimal wheezing). Absent: accessory muscle use, rhonchi, wheezes - Cardiovascular Cardiovascular exam: Present: RRR, +S1, +S2. Absent: diastolic murmur, gallop, rubs, systolic murmur - GI/Abdominal GI/Abdominal exam: Present: normal bowel sounds, soft, no peritoneal signs. Absent: distended, tenderness - Extremities Exam Extremities exam: Present: warm, radial pulses palpable and symmetrical. Absent : calf tenderness, cyanotic, pedal edema - Neurological Exam Neurological exam: Present: CN II-XII intact, oriented X3, no focal deficits. Absent: pronater drift, facial droop, speech deficit - Skin Skin exam: Present: dry, intact Internal Medicine: Result - Labs CBC & Chem 7: 08/07/17 01:48 08/07/17 01:48 Labs: Short CBC 08/07/17 Range/Units 01:48 WBC 10.3 (4.3-11.1) K/mcL Hgb 11.5 L (12.9-16.9) g/dL Hct 35.9 L (37.5-50.1) % Plt Count 178 (140-400) K/mcL Neutrophils # 8.4 (1.6-8.9) K/mcL BMP 08/07/17 01:48 Sodium 139 Potassium 3.8 Chloride 107 Carbon Dioxide 23 BUN 20 Creatinine 1.07 Glucose 114 H Calcium 8.6 Cardiac Enzymes 08/07/17 08/07/17 Range/Units 01:48 07:47 Troponin I 0.03 < 0.03 (< 0.04) ng/mL - ABG Interpretation ABG results: ABG ABG pH 7.43 pH Units (7.32-7.45) 08/07/17 04:30 ABG pCO2 36 mmHg (35-45) 08/07/17 04:30 ABG pO2 69 mmHg (85-104) L 08/07/17 04:30 ABG O2 Saturation 94 % (95-98) L 08/07/17 04:30 PT/INR, D-dimer PT 15.8 Seconds (9.4-12.1) H 08/06/17 19:35 Consult Discharge Plan - Plan
--- NOTE | 2017-08-07 16:18 | Electrocardiograph Report ---
[address] [place] [address] Test Date: 2017-08-06 Pat Name: Dale Thrasher Department: 104 Room: 2A Gender: M Chief Technology Officer: MARLENE : 1935 Requested By: Toy Hess Order Number: [id number] Reading MD: Tess Long Measurements Intervals [employer] Rate: 77 P: 35 MA: 192 QRS: -12 QRSD: 103 T: 114 QT: 389 QTc: 421 Interpretive Statements SINUS RHYTHM WITH OCCASIONAL SUPRAVENTRICULAR PREMATURE COMPLEXES ST DEVIATION AND MODERATE T-WAVE ABNORMALITY, CONSIDER LATERAL ISCHEMIA [-0.1+ mV T WAVE IN I/aVL/V5/V6] Electronically Signed On 08-07-2017 16:17:09 EDT by Tess Long
[2017-08-07 16:19] LABS: Bilirubin,Urine Small (Negative); Blood,Urine Negative (Negative); Clarity,Urine Clear (Clear); Color,Urine Dark Yellow (Yellow); Glucose,Urine (UA) Normal (Normal); Ketones,Urine Negative (Negative); Leukocyte Esterase,Urine Trace (Negative); Nitrite,Urine Negative (Negative); Protein,Urine Trace mg/dL (Neg-Trace); Specific Gravity,Urine > 1.030 (1.010-1.025); Urobilinogen,Urine Normal (Normal)
[2017-08-07] MEDS: MethylPREDNISolone 40 MG/ML VIAL IVP SCH (16:20)
[2017-08-07 16:21] LABS: Bacteria,Urine None Seen per hpf (None-Few); Squamous Epithelial Cell,Urine Many per lpf (None-Few); WBC,Urine 15-30 per hpf (0-3)
[2017-08-07 16:30] LABS: Hyaline Casts,Urine Few per lpf (None-Few)
[2017-08-07 16:31] LABS: Renal Epithelial Cells,Urine Few per hpf (None-Few)
[2017-08-07] MEDS ORDERED: Azithromycin 500 MG in D5% in Water 250 ML IVPB SCH (20:00)
[2017-08-07] MEDS: Latanoprost 2.5 ML BOTTLE BOTH EYES SCH (21:45)
[2017-08-08] MEDS: MethylPREDNISolone 40 MG/ML VIAL IVP SCH ×3 (00:46→21:59)
[2017-08-08] MEDS: Ipratropium/Albuterol Neb 3 ML IH SCH ×4 (03:40→21:34)
[2017-08-08] MEDS: *HR* Heparin 5,000 UNIT/ML VIAL SQ SCH ×3 (05:54→22:01)
[2017-08-08 06:10] LABS: Hematocrit 37.6 % (37.5-50.1); Hemoglobin 12.2 g/dL (12.9-16.9); Mean Corpuscular HGB Conc 32.4 g/dL (31.6-35.5); Mean Corpuscular Hemoglobin 30.7 pg (28.0-33.3); Mean Corpuscular Volume 94.7 fL (83.0-100.0); Mean Platelet Volume 10.8 fL (9.4-12.4); Platelet Count 157 K/mcL (140-400); Red Blood Count 3.97 M/mcL (4.19-5.50); Red Cell Distribution Width 13.9 % (11.5-14.5)
[2017-08-08 06:31] LABS: BUN/Creatinine Ratio 16 (6-26); Blood Urea Nitrogen 15 mg/dL (8-23); Carbon Dioxide 21 mEq/L (23-29); Chloride 107 mEq/L (98-107); Glucose 182 mg/dL (70-105); Osmolality,Calculated 289 (280-300); Potassium 3.9 mEq/L (3.5-5.1); Sodium 137 mEq/L (136-145); eGFR For African Americans > 60 (> 60); eGFR For Non-African Americans > 60 (> 60)
[2017-08-08] MEDS: Cholecalciferol (D-3) 1,000 UNIT TABLET PO SCH (08:40)
[2017-08-08] MEDS: Aspirin Enteric Coated 325 MG Tablet PO SCH (08:40)
[2017-08-08] MEDS: Gabapentin 100 MG CAPSULE PO SCH ×3 (08:40→21:59)
[2017-08-08] MEDS: Diltiazem CD (24hr) 240 MG CAPSULE PO SCH (08:40)
[2017-08-08] MEDS: cefTRIAXone 1,000 MG in Water for inj. (sterile) 20 ML 10 ML IVP SCH (08:41)
[2017-08-08] MEDS: Insulin LISPRO 300 UNITS/3 ML VIAL SQ SCH ×4 (08:45→21:50)
[2017-08-08] MEDS: Dorzolamide OPTH 10 ML BOTTLE BOTH EYES SCH ×2 (08:46→22:00)
[2017-08-08] MEDS: 0.9 % Sodium Chloride 1,000 ML IVC SCH ×3 (08:47→22:08)
--- NOTE | 2017-08-08 10:50 | Internal Med Progress Note ---
Date of Encounter: 08/08/17 Time of Encounter: 10:48 - Assessment and plan (1) Community acquired pneumonia Current Visit: No Status: Acute Assessment and plan: Acute on chronic hypoxic respiratory failure secondary to acute COPD exacerbation due to community-acquired pneumonia/unknown agent Has severe emphysema Continue azithromax/rocephin day #3 Still requiring 6 liters of oxygen Continue Solu-Medrol Pending: sputum cultures, urine strep/legionella. f/u on blood cultures. O2 support. Wean as tolerated. Nebs. IV fluids CT scan of the chest showed: 1. There is stable appearance of mild dilation of the ascending thoracic aorta. There is no evidence of dissection or leakage. 2. Development of multifocal consolidation within the left lower lobe, most compatible with pneumonia. Some of that has a nodular morphology, and therefore it is essential that that be followed to resolution. 3. Re- demonstration of emphysema. Qualifiers: Laterality: left Lung location: unspecified part of lung Qualified Code(s ): J18.9 - Pneumonia, unspecified organism (2) COPD (chronic obstructive pulmonary disease) Current Visit: No Status: Acute Assessment and plan: Steroids On 2 L chronically. Qualifiers: COPD type: unspecified COPD Qualified Code(s): J44.9 - Chronic obstructive pulmonary disease, unspecified (3) BPH (benign prostatic hyperplasia) Current Visit: No Status: Acute Assessment and plan: c/w home meds Qualifiers: Lower urinary tract symptom presence: symptoms absent Qualified Code(s): N40.0 - Benign prostatic hyperplasia without lower urinary tract symptoms (4) HTN (hypertension) Current Visit: No Status: Acute Assessment and plan: stable Qualifiers: Hypertension type: essential hypertension Qualified Code(s): I10 - Essential (primary) hypertension (5) T2DM (type 2 diabetes mellitus) Current Visit: No Status: Acute Assessment and plan: SSI and accucheks. Qualifiers: Diabetes mellitus fci insulin use: without hospice clinical supervisor use Diabetes mellitus complication status: without complication Qualified Code(s): E11.9 - Type 2 diabetes mellitus without complications (6) Syncope Current Visit: Yes Status: Acute Assessment and plan: Syncopal episode likely related to pneumonia and hypoxia. CT head No acute findings. Fall precautions Qualifiers: Syncope type: vasovagal syncope Qualified Code(s): R55 - Syncope and collapse (7) PHILLIP (acute kidney injury) Current Visit: Yes Status: Acute Assessment and plan: Acute renal failure likely secondary to infection Will gently hydrate. Avoid nephrotoxins. (8) Leukopenia Current Visit: Yes Status: Acute Assessment and plan: Likely related to infection Recheck in the morning Qualifiers: Leukopenia type: neutropenia Neutropenia type: due to infection Qualified Code(s): D70.3 - Neutropenia due to infection - Time Spent With Patient Total time spent is greater than 50% in coordination of care (as documented) at patient's floor/unit and/or counseling patient: - Subjective Interval history: Feeling slightly less short of breath. Saturation of oxygen dropped down to the 80s prior to admission, denies any chest pain, denies any abdominal pain, complained of some dysuria, no diarrhea or fevers - Constitutional Vitals: Temp Pulse Resp BP Pulse Ox 98.8 F 73 20 139/76 92 08/08/17 07:46 08/08/17 07:46 08/08/17 07:46 08/08/17 07:46 08/08/17 07:46 General appearance: Present: A&O X 3 Exam: - Head Head exam: Present: atraumatic, normocephalic - Eye Eye exam: Present: PERRL, conjuntiva pink, sclera anicteric Pupils: Present: PERRL - Neck Neck exam general surgery: Present: supple, trachea midline. Absent: lymphadenopathy - Respiratory Respiratory exam: Present: CTAB, rales (Left basilar crackles with minimal wheezing). Absent: accessory muscle use, rhonchi, wheezes - Cardiovascular Cardiovascular exam: Present: RRR, +S1, +S2. Absent: diastolic murmur, gallop, rubs, systolic murmur - GI/Abdominal GI/Abdominal exam: Present: normal bowel sounds, soft, no peritoneal signs. Absent: distended, tenderness - Extremities Exam Extremities exam: Present: warm, radial pulses palpable and symmetrical. Absent : calf tenderness, cyanotic, pedal edema - Neurological Exam Neurological exam: Present: CN II-XII intact, oriented X3, no focal deficits. Absent: pronater drift, facial droop, speech deficit - Skin Skin exam: Present: dry, intact Internal Medicine: Result - Labs CBC & Chem 7: 08/08/17 05:20 08/08/17 05:20 Labs: Short CBC 08/08/17 Range/Units 05:20 WBC 3.9 L D (4.3-11.1) K/mcL Hgb 12.2 L (12.9-16.9) g/dL Hct 37.6 (37.5-50.1) % Plt Count 157 (140-400) K/mcL BMP 08/08/17 05:20 Sodium 137 Potassium 3.9 Chloride 107 Carbon Dioxide 21 L BUN 15 Creatinine 0.95 Glucose 182 H Calcium 9.0 Urine 08/07/17 Range/Units 12:55 Urine Color Dark Yellow (Yellow) Urine Clarity Clear (Clear) Urine pH 5.0 (5.0-8.0) pH Units Ur Specific [place] > 1.030 H (1.010-1.025) Urine Protein Trace (Neg-Trace) mg/dL Urine Glucose (UA) Normal (Normal) mg/dL - ABG Interpretation ABG results: ABG ABG pH 7.43 pH Units (7.32-7.45) 08/07/17 04:30 ABG pCO2 36 mmHg (35-45) 08/07/17 04:30 ABG pO2 69 mmHg (85-104) L 08/07/17 04:30 ABG O2 Saturation 94 % (95-98) L 08/07/17 04:30 PT/INR, D-dimer PT 15.8 Seconds (9.4-12.1) H 08/06/17 19:35 - Impressions Impressions Echocardiogram 08/07/17 21:16 Impressions: LVEF 50-55%. Normal LV chamber size, wall thickness and function. Mild left ventricular diastolic dysfunction. Dilated right ventricle with normal function. Moderately calcified, bicuspid appearing aortic valve. Mild-moderate aortic stenosis. Mean gradient 20 mmHg. Severe pulmonary hypertension. Left Ventricular Wall Motion: Rest Echo Findings All wall segments showed normal motion. Findings: Study Quality * Technically adequate exam. ECG Findings * Normal sinus rhythm. Left Ventricle * LVEF 50-55%. * Normal LV chamber size, wall thickness and function. * Mild left ventricular diastolic dysfunction. Right Ventricle * Dilated right ventricle with normal function. Left Atrium * Moderately dilated left atrium. Right Atrium * Moderately dilated right atrium. Aortic Valve * Moderately calcified, bicuspid appearing aortic valve. * No aortic regurgitation. * Mild-moderate aortic stenosis. Mean gradient 20 mmHg. Mitral Valve * Normal mitral valve structure and function. * No mitral regurgitation. * No mitral stenosis. Tricuspid Valve * Normal tricuspid valve structure and function. * Trace tricuspid regurgitation. * Severe pulmonary hypertension. Pulmonic Valve * Normal pulmonic valve structure and function. * No pulmonic regurgitation. Aorta * The aortic root is mildly dilated. Pericardium * The pericardium appears normal. IVC * The IVC is not well evaluated. Pulmonary Artery * Normal visualized portions of the main pulmonary artery. Consult Discharge Plan - Plan Referrals: Kristine Galloway MD [Primary Care Provider] -
[2017-08-08] MEDS: Budesonide/Formoterol 160/4.5 MDI IH SCH ×2 (10:56→21:34)
[2017-08-08] MEDS: Azithromycin 250 MG TABLET PO SCH (17:02)
[2017-08-08] MEDS: Latanoprost 2.5 ML BOTTLE BOTH EYES SCH (21:59)
[2017-08-09] MEDS: Ipratropium/Albuterol Neb 3 ML IH SCH ×4 (04:00→21:35)
[2017-08-09] MEDS: *HR* Heparin 5,000 UNIT/ML VIAL SQ SCH ×3 (05:53→21:21)
[2017-08-09 06:14] LABS: Basophils % 0.1 %; Hematocrit 36.4 % (37.5-50.1); Hemoglobin 11.7 g/dL (12.9-16.9); Immature Granulocytes % 0.4 % (0-4); Lymphocytes # 0.3 K/mcL (0.6-4.6); Lymphocytes % 3.5 %; Mean Corpuscular HGB Conc 32.1 g/dL (31.6-35.5); Mean Corpuscular Hemoglobin 30.4 pg (28.0-33.3); Mean Corpuscular Volume 94.5 fL (83.0-100.0); Mean Platelet Volume 10.9 fL (9.4-12.4); Monocytes # 0.4 K/mcL (0.0-1.3); Monocytes % 5.3 %; Neutrophils # 7.2 K/mcL (1.6-8.9); Platelet Count 157 K/mcL (140-400); Red Blood Count 3.85 M/mcL (4.19-5.50); Red Cell Distribution Width 13.8 % (11.5-14.5); Segmented Neutrophils % 90.7 %
[2017-08-09 06:34] LABS: BUN/Creatinine Ratio 20 (6-26); Blood Urea Nitrogen 18 mg/dL (8-23); Calcium 8.9 mg/dL (8.6-10.3); Carbon Dioxide 21 mEq/L (23-29); Chloride 111 mEq/L (98-107); Glucose 162 mg/dL (70-105); Osmolality,Calculated 295 (280-300); Sodium 140 mEq/L (136-145); eGFR For African Americans > 60 (> 60); eGFR For Non-African Americans > 60 (> 60)
[2017-08-09] MEDS: Insulin LISPRO 300 UNITS/3 ML VIAL SQ SCH ×4 (08:24→20:45)
[2017-08-09] MEDS: Diltiazem CD (24hr) 240 MG CAPSULE PO SCH (08:26)
[2017-08-09] MEDS: Cholecalciferol (D-3) 1,000 UNIT TABLET PO SCH (08:27)
[2017-08-09] MEDS: Aspirin Enteric Coated 325 MG Tablet PO SCH (08:27)
[2017-08-09] MEDS: cefTRIAXone 1,000 MG in Water for inj. (sterile) 20 ML 10 ML IVP SCH (08:27)
[2017-08-09] MEDS: Gabapentin 100 MG CAPSULE PO SCH ×3 (08:27→21:22)
[2017-08-09] MEDS: MethylPREDNISolone 40 MG/ML VIAL IVP SCH ×2 (08:27→21:22)
[2017-08-09] MEDS: 0.9 % Sodium Chloride 1,000 ML IVC SCH (09:04)
[2017-08-09] MEDS: Dorzolamide OPTH 10 ML BOTTLE BOTH EYES SCH ×2 (09:06→21:23)
[2017-08-09] MEDS: Budesonide/Formoterol 160/4.5 MDI IH SCH ×2 (10:03→21:35)
--- NOTE | 2017-08-09 14:31 | Internal Med Progress Note ---
Date of Encounter: 08/09/17 Time of Encounter: 14:00 - Assessment and plan (1) Community acquired pneumonia Current Visit: No Status: Acute Assessment and plan: Acute on chronic hypoxic respiratory failure secondary to acute COPD exacerbation due to community-acquired pneumonia Mostly bacterial Continue empirical abx Rocephin day #4/7 Azithromycn 4/5 Still requiring 5 liters of oxygen Continue IV steroids sputum cultures- no growth urine strep/legionella - Negative O2 support. Wean as tolerated. Nebs. D/C IV fluids Qualifiers: Laterality: left Lung location: unspecified part of lung Qualified Code(s ): J18.9 - Pneumonia, unspecified organism (2) Acute and chronic respiratory failure with hypoxia Current Visit: Yes Status: Acute Assessment and plan: Chronic home O2 dependent at 2 Lit cont Duoneb + Steroids + O2 (3) COPD (chronic obstructive pulmonary disease) Current Visit: No Status: Acute Assessment and plan: Cont high dose IV steroids cont Duoneb Try to wean him off the O2 as he tolerates Qualifiers: COPD type: unspecified COPD Qualified Code(s): J44.9 - Chronic obstructive pulmonary disease, unspecified (4) BPH (benign prostatic hyperplasia) Current Visit: No Status: Acute Assessment and plan: c/w home meds Qualifiers: Lower urinary tract symptom presence: symptoms absent Qualified Code(s): N40.0 - Benign prostatic hyperplasia without lower urinary tract symptoms (5) HTN (hypertension) Current Visit: No Status: Acute Assessment and plan: stable with home meds Qualifiers: Hypertension type: essential hypertension Qualified Code(s): I10 - Essential (primary) hypertension (6) T2DM (type 2 diabetes mellitus) Current Visit: No Status: Acute Assessment and plan: SSI and accucheks. Qualifiers: Diabetes mellitus suture gauger insulin use: without nursing home use Diabetes mellitus complication status: without complication Qualified Code(s): E11.9 - Type 2 diabetes mellitus without complications (7) Syncope Current Visit: Yes Status: Acute Assessment and plan: Syncopal episode likely related to pneumonia and hypoxia. CT head No acute findings. Fall precautions Qualifiers: Syncope type: vasovagal syncope Qualified Code(s): R55 - Syncope and collapse (8) PHILLIP (acute kidney injury) Current Visit: Yes Status: Acute Assessment and plan: Acute renal failure likely secondary to infection and dehydration resolved (9) Leukopenia Current Visit: Yes Status: Acute Assessment and plan: Likely related to infection resolved Qualifiers: Leukopenia type: neutropenia Neutropenia type: due to infection Qualified Code(s): D70.3 - Neutropenia due to infection - Time Spent With Patient Total time spent is greater than 50% in coordination of care (as documented) at patient's floor/unit and/or counseling patient: - Subjective Interval history: Mr. 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 He is still on 5 lit O2. denied any CP. Still has moderate SOB and HORN. No fever / chills. - Constitutional Vitals: Temp Pulse Resp BP Pulse Ox 96.7 F L 92 17 130/71 90 08/09/17 11:07 08/09/17 11:07 08/09/17 11:07 08/09/17 11:07 08/09/17 11:07 General appearance: Present: cooperative, mild distress, A&O X 3, answers questions appropriately - Head Head exam: Present: atraumatic, normal inspection - Neck Neck exam general surgery: Present: supple - Respiratory Respiratory exam: Present: decreased breath sounds, respiratory distress (mild) , wheezes (moderate). Absent: rales, rhonchi - Cardiovascular Cardiovascular exam: Present: RRR, +S1, +S2. Absent: tachycardia - GI/Abdominal GI/Abdominal exam: Present: normal bowel sounds, soft. Absent: rebound, rigid, tenderness - Extremities Exam Extremities exam: Absent: calf tenderness, pedal edema, tenderness - Back Exam Back exam: Absent: CVA tenderness (L), CVA tenderness (R) - Neurological Exam Neurological exam: Present: alert, oriented X3 - Psychiatric Psychiatric exam: Present: normal affect, normal mood Internal Medicine: Result - Labs CBC & Chem 7: 08/09/17 05:04 08/09/17 05:04 Labs: Short CBC 08/09/17 Range/Units 05:04 WBC 7.9 D (4.3-11.1) K/mcL Hgb 11.7 L (12.9-16.9) g/dL Hct 36.4 L (37.5-50.1) % Plt Count 157 (140-400) K/mcL Neutrophils # 7.2 (1.6-8.9) K/mcL BMP 08/09/17 05:04 Sodium 140 Potassium 4.0 Chloride 111 H Carbon Dioxide 21 L BUN 18 Creatinine 0.91 Glucose 162 H Calcium 8.9 - ABG Interpretation ABG results: ABG ABG pH 7.43 pH Units (7.32-7.45) 08/07/17 04:30 ABG pCO2 36 mmHg (35-45) 08/07/17 04:30 ABG pO2 69 mmHg (85-104) L 08/07/17 04:30 ABG O2 Saturation 94 % (95-98) L 08/07/17 04:30 PT/INR, D-dimer PT 15.8 Seconds (9.4-12.1) H 08/06/17 19:35 Consult Discharge Plan - Plan Referrals: Kristine Galloway MD [Primary Care Provider] -
[2017-08-09] MEDS ORDERED: Furosemide 20 MG/2 ML VIAL IVP ONE (14:45)
[2017-08-09] MEDS: Azithromycin 250 MG TABLET PO SCH (17:15)
[2017-08-09] MEDS: Latanoprost 2.5 ML BOTTLE BOTH EYES SCH (21:23)
[2017-08-10] MEDS: Ipratropium/Albuterol Neb 3 ML IH SCH ×4 (04:55→21:57)
[2017-08-10 05:10] LABS: Hemoglobin 11.7 g/dL (12.9-16.9); Lymphocytes # 0.4 K/mcL (0.6-4.6); Lymphocytes % 5.7 %; Mean Corpuscular HGB Conc 32.5 g/dL (31.6-35.5); Mean Corpuscular Hemoglobin 30.3 pg (28.0-33.3); Mean Corpuscular Volume 93.3 fL (83.0-100.0); Mean Platelet Volume 10.9 fL (9.4-12.4); Monocytes # 0.5 K/mcL (0.0-1.3); Monocytes % 7.6 %; Neutrophils # 5.3 K/mcL (1.6-8.9); Platelet Count 171 K/mcL (140-400); Red Blood Count 3.86 M/mcL (4.19-5.50); Red Cell Distribution Width 13.8 % (11.5-14.5); Segmented Neutrophils % 85.7 %
[2017-08-10 05:29] LABS: BUN/Creatinine Ratio 26 (6-26); Blood Urea Nitrogen 23 mg/dL (8-23); Calcium 8.8 mg/dL (8.6-10.3); Carbon Dioxide 24 mEq/L (23-29); Chloride 108 mEq/L (98-107); Glucose 162 mg/dL (70-105); Osmolality,Calculated 297 (280-300); Sodium 140 mEq/L (136-145); eGFR For African Americans > 60 (> 60); eGFR For Non-African Americans > 60 (> 60)
[2017-08-10] MEDS: *HR* Heparin 5,000 UNIT/ML VIAL SQ SCH ×3 (06:26→21:01)
[2017-08-10] MEDS: Insulin LISPRO 300 UNITS/3 ML VIAL SQ SCH ×4 (07:52→20:59)
[2017-08-10] MEDS: Diltiazem CD (24hr) 240 MG CAPSULE PO SCH (07:53)
[2017-08-10] MEDS: Dorzolamide OPTH 10 ML BOTTLE BOTH EYES SCH ×2 (07:53→21:00)
[2017-08-10] MEDS: MethylPREDNISolone 40 MG/ML VIAL IVP SCH (07:54)
[2017-08-10] MEDS: Cholecalciferol (D-3) 1,000 UNIT TABLET PO SCH (07:54)
[2017-08-10] MEDS: Aspirin Enteric Coated 325 MG Tablet PO SCH (07:54)
[2017-08-10] MEDS: cefTRIAXone 1,000 MG in Water for inj. (sterile) 20 ML 10 ML IVP SCH (07:54)
[2017-08-10] MEDS: Gabapentin 100 MG CAPSULE PO SCH ×3 (07:54→20:59)
[2017-08-10] MEDS: Budesonide/Formoterol 160/4.5 MDI IH SCH ×2 (09:51→21:56)
--- NOTE | 2017-08-10 12:51 | Internal Med Progress Note ---
Date of Encounter: 08/10/17 Time of Encounter: 12:51 - Assessment and plan (1) Community acquired pneumonia Current Visit: No Status: Acute Assessment and plan: Acute on chronic hypoxic respiratory failure secondary to acute COPD exacerbation due to community-acquired pneumonia Mostly bacterial Continue empirical abx Rocephin day #5/ Azithromycn 5/ Still requiring 5 liters of oxygen Continue IV steroids sputum cultures- no growth urine strep/legionella - Negative O2 support. Wean as tolerated. Nebs. Qualifiers: Laterality: left Lung location: unspecified part of lung Qualified Code(s ): J18.9 - Pneumonia, unspecified organism (2) Acute and chronic respiratory failure with hypoxia Current Visit: Yes Status: Acute Assessment and plan: Chronic home O2 dependent at 2 Lit Try to wean him off the O2 to baseline cont Duoneb + Steroids + O2 Had -662 fluid balance y/d and felt better with Lasix so will give him 2 more doses (3) COPD (chronic obstructive pulmonary disease) Current Visit: No Status: Acute Assessment and plan: Cont high dose IV steroids cont Duoneb Try to wean him off the O2 as he tolerates Qualifiers: COPD type: unspecified COPD Qualified Code(s): J44.9 - Chronic obstructive pulmonary disease, unspecified (4) BPH (benign prostatic hyperplasia) Current Visit: No Status: Acute Assessment and plan: c/w home meds Qualifiers: Lower urinary tract symptom presence: symptoms absent Qualified Code(s): N40.0 - Benign prostatic hyperplasia without lower urinary tract symptoms (5) HTN (hypertension) Current Visit: No Status: Acute Assessment and plan: stable with home meds Qualifiers: Hypertension type: essential hypertension Qualified Code(s): I10 - Essential (primary) hypertension (6) T2DM (type 2 diabetes mellitus) Current Visit: No Status: Acute Assessment and plan: SSI and accucheks. Qualifiers: Diabetes mellitus jail insulin use: without termination clerk use Diabetes mellitus complication status: without complication Qualified Code(s): E11.9 - Type 2 diabetes mellitus without complications (7) Syncope Current Visit: Yes Status: Acute Assessment and plan: Syncopal episode likely related to pneumonia and hypoxia. CT head No acute findings. Fall precautions Qualifiers: Syncope type: vasovagal syncope Qualified Code(s): R55 - Syncope and collapse (8) PHILLIP (acute kidney injury) Current Visit: Yes Status: Acute Assessment and plan: Acute renal failure likely secondary to infection and dehydration resolved (9) Leukopenia Current Visit: Yes Status: Acute Assessment and plan: Likely related to infection resolved Qualifiers: Leukopenia type: neutropenia Neutropenia type: due to infection Qualified Code(s): D70.3 - Neutropenia due to infection - Time Spent With Patient Total time spent is greater than 50% in coordination of care (as documented) at patient's floor/unit and/or counseling patient: - Subjective Interval history: Mr. 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 He is still on 4 lit O2. denied any CP. Still has mild SOB and HORN. No fever / chills. Over all feels better today. Wants to go home in AM - Constitutional Vitals: Temp Pulse Resp BP Pulse Ox 97.9 F 73 17 121/72 93 08/10/17 12:27 08/10/17 12:27 08/10/17 12:27 08/10/17 12:27 08/10/17 12:27 General appearance: Present: cooperative, A&O X 3, answers questions appropriately - Head Head exam: Present: atraumatic, normal inspection - Neck Neck exam general surgery: Present: supple - Respiratory Respiratory exam: Present: decreased breath sounds, wheezes (mild to moderate). Absent: rales, respiratory distress, rhonchi - Cardiovascular Cardiovascular exam: Present: RRR, +S1, +S2. Absent: tachycardia - GI/Abdominal GI/Abdominal exam: Present: normal bowel sounds, soft. Absent: rebound, rigid, tenderness - Extremities Exam Extremities exam: Absent: calf tenderness, pedal edema, tenderness - Back Exam Back exam: Absent: CVA tenderness (L), CVA tenderness (R) - Neurological Exam Neurological exam: Present: alert, oriented X3 - Psychiatric Psychiatric exam: Present: normal affect, normal mood - Skin Skin exam: Absent: rash Internal Medicine: Result - Labs CBC & Chem 7: 08/10/17 04:47 08/10/17 04:47 Labs: Short CBC 05/06/18 Range/Units 04:47 WBC 6.2 (4.3-11.1) K/mcL Hgb 11.7 L (12.9-16.9) g/dL Hct 36.0 L (37.5-50.1) % Plt Count 171 (140-400) K/mcL Neutrophils # 5.3 (1.6-8.9) K/mcL BMP 08/10/17 04:47 Sodium 140 Potassium 4.0 Chloride 108 H Carbon Dioxide 24 BUN 23 Creatinine 0.90 Glucose 162 H Calcium 8.8 - ABG Interpretation ABG results: ABG ABG pH 7.43 pH Units (7.32-7.45) 08/07/17 04:30 ABG pCO2 36 mmHg (35-45) 08/07/17 04:30 ABG pO2 69 mmHg (85-104) L 08/07/17 04:30 ABG O2 Saturation 94 % (95-98) L 08/07/17 04:30 PT/INR, D-dimer PT 15.8 Seconds (9.4-12.1) H 08/06/17 19:35 Consult Discharge Plan - Plan Referrals: Kristine Galloway MD [Primary Care Provider] -
[2017-08-10] MEDS: Furosemide 20 MG/2 ML VIAL IVP SCH ×2 (14:18→17:07)
[2017-08-10] MEDS: Latanoprost 2.5 ML BOTTLE BOTH EYES SCH (21:00)
[2017-08-11] MEDS: Ipratropium/Albuterol Neb 3 ML IH SCH ×2 (03:53→11:08)
[2017-08-11] MEDS: *HR* Heparin 5,000 UNIT/ML VIAL SQ SCH ×2 (05:44→13:24)
[2017-08-11 06:10] LABS: BUN/Creatinine Ratio 28 (6-26); Blood Urea Nitrogen 26 mg/dL (8-23); Calcium 8.9 mg/dL (8.6-10.3); Carbon Dioxide 27 mEq/L (23-29); Chloride 103 mEq/L (98-107); Glucose 168 mg/dL (70-105); Magnesium 2.2 mg/dL (1.6-2.6); Osmolality,Calculated 295 (280-300); Potassium 3.4 mEq/L (3.5-5.1); Sodium 138 mEq/L (136-145); eGFR For African Americans > 60 (> 60); eGFR For Non-African Americans > 60 (> 60)
[2017-08-11] MEDS: Insulin LISPRO 300 UNITS/3 ML VIAL SQ SCH ×2 (07:57→13:17)
[2017-08-11] MEDS: cefTRIAXone 1,000 MG in Water for inj. (sterile) 20 ML 10 ML IVP SCH (07:58)
[2017-08-11] MEDS: Cholecalciferol (D-3) 1,000 UNIT TABLET PO SCH (07:58)
[2017-08-11] MEDS: Furosemide 20 MG/2 ML VIAL IVP SCH (07:58)
[2017-08-11] MEDS: Diltiazem CD (24hr) 240 MG CAPSULE PO SCH (07:58)
[2017-08-11] MEDS: Gabapentin 100 MG CAPSULE PO SCH (07:58)
[2017-08-11] MEDS: Dorzolamide OPTH 10 ML BOTTLE BOTH EYES SCH (08:07)
--- NOTE | 2017-08-11 08:17 | Discharge Summary ---
- NOTES TO OUTPATIENT PROVIDER Notes to Outpatient Provider: f/u with PCP in one week. f/u with Pulmologist in 1-2 weeks. please continue using 4 lit O2 until you are seen by PCP Date of Encounter: 08/11/17 Time of Encounter: 08:11 - Discharge Diagnosis (1) Community acquired pneumonia Priority: Primary Status: Acute Qualifiers: Laterality: left Lung location: unspecified part of lung Qualified Code(s ): J18.9 - Pneumonia, unspecified organism (2) Acute and chronic respiratory failure with hypoxia Priority: Primary Status: Acute (3) COPD (chronic obstructive pulmonary disease) Priority: Primary Status: Acute Qualifiers: COPD type: unspecified COPD Qualified Code(s): J44.9 - Chronic obstructive pulmonary disease, unspecified (4) BPH (benign prostatic hyperplasia) Priority: Secondary Status: Acute Qualifiers: Lower urinary tract symptom presence: symptoms absent Qualified Code(s): N40.0 - Benign prostatic hyperplasia without lower urinary tract symptoms (5) HTN (hypertension) Priority: Secondary Status: Acute Qualifiers: Hypertension type: essential hypertension Qualified Code(s): I10 - Essential (primary) hypertension (6) T2DM (type 2 diabetes mellitus) Priority: Secondary Status: Acute Qualifiers: Diabetes mellitus exterminator termite insulin use: without custodial use Diabetes mellitus complication status: without complication Qualified Code(s): E11.9 - Type 2 diabetes mellitus without complications (7) Syncope Priority: Secondary Status: Acute Qualifiers: Syncope type: vasovagal syncope Qualified Code(s): R55 - Syncope and collapse (8) PHILLIP (acute kidney injury) Priority: Secondary Status: Acute Hospital course: Mr. 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 Pt was started on empirical abx Rocephin and Azithromycin. Also placed on high dose IV steroids. His symptoms started improving slowly. Initially required 6 lit O2, now he is down to 4 lit O2. Regarding his syncope which seems to be due to dehydration / orthostatic. With IV hydration his PHILLIP also improved. His 2 D Echo showed preserved LVEF and mild diastolic dysfunction. His carotid doppler did not show any stenosis. He is still on 4 lit O2. denied any CP. Over all feels much better today. Wants to go home. He is able to finish full sentence with out any pause. So we will arrange for 4 lit O2 and d/c him home with home health services today. - Time Spent with Patient Total time spent providing and/or coordinating discharge services: - Discharge Medications Prescriptions: Cephalexin [Keflex] 500 mg PO BID #4 capsule predniSONE [PredniSONE] 40 mg PO DAILY #10 tablet Home Medications: Albuterol Sulfate [Albuterol Inhaler] 2 puff IH Q4H PRN 12/17/14 [History] Aspirin 325 mg PO DAILY 12/17/14 [History] Cholecalciferol (D-3) 1,000 unit PO DAILY 12/17/14 [History] Diltiazem HCl [Diltiazem 24Hr Cd] 240 mg PO DAILY 12/17/14 [History] Latanoprost [Xalatan] 1 drop BOTH EYES HS 12/17/14 [History] Tiotropium [Spiriva] 18 mcg IH 0700 12/17/14 [History] Alfuzosin HCl [Uroxatral] 10 mg PO DAILY 05/31/16 [History] Budesonide/Formoterol 160/4.5 [Symbicort 160/4.5] 2 puff IH BIDR 05/31/16 [ History] Ubidecarenone [Co Q-10] 200 mg PO DAILY 05/31/16 [History] Calcium Polycarbophil [Fiber Laxative] 1,250 mg PO QID 08/06/17 [History] Dorzolamide [Trusopt] 1 drop BOTH EYES BID 08/06/17 [History] Gabapentin [Neurontin] 100 mg PO TID 08/06/17 [History] Omeprazole [PriLOSEC] 20 mg PO DAILY 08/06/17 [History] Cephalexin [Keflex] 500 mg PO BID #4 capsule 08/11/17 [Rx] Oxygen 4 l NS AD #0 08/11/17 [Rx] predniSONE [PredniSONE] 40 mg PO DAILY #10 tablet 08/11/17 [Rx] Allergies/Adverse Reactions: 3 Allergy/AdvReac Type Severity Reaction Status Date / Time Penicillins Allergy Swelling Verified 12/08/14 10:28 of Lip/Tongue/Throat [id number]-[id number] Reductase AdvReac Muscle Pain Verified 08/06/17 19:17 Inhibitor [Statins] Date of admission: 08/06/17 21:59 Primary care physician: Kristine Wells Consults: 08/08/17 10:30 Consult to Physical Therapy [CONS] Routine Comment: Evaluate, develop and implement POC Reason for Consult: fall at home; lives home alone; in process of purchasing/moving to new home; Does patient have active BEDREST order?: No Is patient medically & hemodynamically stable?: Yes - Constitutional Vitals: Temp Pulse Resp BP Pulse Ox 97.9 F 76 18 138/80 91 08/11/17 06:22 08/11/17 06:22 08/11/17 06:22 08/11/17 06:22 08/11/17 06:22 General appearance: Present: cooperative, A&O X 3, answers questions appropriately - Head Head exam: Present: normal inspection - Neck Neck exam general surgery: Present: supple - Respiratory Respiratory exam: Present: decreased breath sounds, wheezes (mild). Absent: rales, respiratory distress, rhonchi - Cardiovascular Cardiovascular exam: Present: RRR, +S1, +S2. Absent: tachycardia - GI/Abdominal GI/Abdominal exam: Present: normal bowel sounds, soft. Absent: rebound, rigid, tenderness - Extremities Exam Extremities exam: Absent: calf tenderness, pedal edema, tenderness - Back Exam Back exam: Absent: CVA tenderness (L), CVA tenderness (R) - Patient Status Disposition: Home Health Service Condition: Good Overall status at discharge: patient is back to baseline - Discharge Instructions Follow Up With: Kristine Galloway MD [Primary Care Provider] - Femi Tomlin MD [Partnered Physician] - Forms: ED Satisfaction Letter - Diet and Activity Activity: increase activity as tolerated, wear oxygen at all times (4 lit) Diet: low salt diet
--- NOTE | 2017-08-11 08:19 | Physician Discharge Referral ---
Home Health/Hosp Referral Info Transfer to: Home Health Provider in Charge Post Discharge: PCP - Diagnosis (1) Community acquired pneumonia Status: Acute (2) Acute and chronic respiratory failure with hypoxia Status: Acute (3) COPD (chronic obstructive pulmonary disease) Status: Acute (4) BPH (benign prostatic hyperplasia) Status: Acute (5) HTN (hypertension) Status: Acute (6) T2DM (type 2 diabetes mellitus) Status: Acute (7) Syncope Status: Acute (8) PHILLIP (acute kidney injury) Status: Acute - Respiratory Orders Smoking Cessation: Smoking cessation has been advised. For more information, call the [place] Tobacco Quit Line at 8-327-DLLB-NOW. - Services Needed Following services are medically necessary services: Nursing, Physical Therapy, Occupational Therapy - Transfer Medications Prescriptions: Cephalexin [Keflex] 500 mg PO BID #4 capsule predniSONE [PredniSONE] 40 mg PO DAILY #10 tablet Home Medications: Albuterol Sulfate [Albuterol Inhaler] 2 puff IH Q4H PRN 12/17/14 [History] Aspirin 325 mg PO DAILY 12/17/14 [History] Cholecalciferol (D-3) 1,000 unit PO DAILY 12/17/14 [History] Diltiazem HCl [Diltiazem 24Hr Cd] 240 mg PO DAILY 12/17/14 [History] Latanoprost [Xalatan] 1 drop BOTH EYES HS 12/17/14 [History] Tiotropium [Spiriva] 18 mcg IH 0700 12/17/14 [History] Alfuzosin HCl [Uroxatral] 10 mg PO DAILY 05/31/16 [History] Budesonide/Formoterol 160/4.5 [Symbicort 160/4.5] 2 puff IH BIDR 05/31/16 [ History] Ubidecarenone [Co Q-10] 200 mg PO DAILY 05/31/16 [History] Calcium Polycarbophil [Fiber Laxative] 1,250 mg PO QID 08/06/17 [History] Dorzolamide [Trusopt] 1 drop BOTH EYES BID 08/06/17 [History] Gabapentin [Neurontin] 100 mg PO TID 08/06/17 [History] Omeprazole [PriLOSEC] 20 mg PO DAILY 08/06/17 [History] Cephalexin [Keflex] 500 mg PO BID #4 capsule 08/11/17 [Rx] Oxygen 4 l NS AD #0 08/11/17 [Rx] predniSONE [PredniSONE] 40 mg PO DAILY #10 tablet 08/11/17 [Rx] Allergies/Adverse Reactions: 3 Allergy/AdvReac Type Severity Reaction Status Date / Time Penicillins Allergy Swelling Verified 12/08/14 10:28 of Lip/Tongue/Throat Ykcohkf-Ola-Ttb Reductase AdvReac Muscle Pain Verified 08/06/17 19:17 Inhibitor [Statins] Certification: Further, I certify that my clinical findings support that this patient is homebound (i.e. absences from home require considerable and taxing effort and are for medical reasons or confucianism services or infrequently or short duration when for other reasons) because: Homebound Reason: Patient requires assistance of a person or device to safely leave home Attestation: My signature below is to certify that this patient is under my care and that I, or nurse practitioner, or a physician's psychologist research assistant working with me, has a face-to -face encounter with this patient.
[2017-08-11] MEDS ORDERED: predniSONE 20 MG TABLET PO SCH (09:00)
[2017-08-11] MEDS ORDERED: Aspirin Enteric Coated 81 MG Tablet PO SCH (09:00)
[2017-08-11 11:00] VITALS: BP 131/80
[2017-08-11] MEDS: Budesonide/Formoterol 160/4.5 MDI IH SCH (11:08)
== END 2017-08-11 15:42 | disposition home health service (06) | DRG 189 ==
LOC: EMEROO 18:07 → 2ANU 18:07
PROVIDERS: ADMIT Internal Medicine; ATTEND Internal Medicine

== ENCOUNTER 2019-02-02 16:17 | Observation (INO) ==
[2019-02-02] MEDS ORDERED: Ipratropium/Albuterol Neb 3 ML IH ONE (16:29)
[2019-02-02] MEDS ORDERED: methylPREDNISolone 125 MG/2 ML VIAL IVP ONE (16:29)
[2019-02-02 17:01] LABS: Basophils % 0.4 %; Eosinophils # 0.4 K/mcL (0.0-0.6); Eosinophils % 4.4 %; Hematocrit 39.8 % (37.5-50.1); Immature Granulocytes % 0.3 % (0-4); Lymphocytes # 0.5 K/mcL (0.6-4.6); Lymphocytes % 6.6 %; Mean Corpuscular HGB Conc 32.7 g/dL (31.6-35.5); Mean Corpuscular Hemoglobin 32.8 pg (28.0-33.3); Mean Corpuscular Volume 100.5 fL (83.0-100.0); Mean Platelet Volume 10.9 fL (9.4-12.4); Monocytes # 0.4 K/mcL (0.0-1.3); Monocytes % 5.5 %; Neutrophils # 6.6 K/mcL (1.6-8.9); Platelet Count 131 K/mcL (140-400); Red Blood Count 3.96 M/mcL (4.19-5.50); Red Cell Distribution Width 15.7 % (11.5-14.5); Segmented Neutrophils % 82.8 %
[2019-02-02 17:30] LABS: Calcium 8.8 mg/dL (8.6-10.3); Troponin I 2.35 ng/mL (< 0.04)
[2019-02-02] MEDS ORDERED: Aspirin 325 MG TABLET PO ONE (17:35)
[2019-02-02] MEDS ORDERED: 0.9 % Sodium Chloride 1,000 ML IVC ONE (17:38)
[2019-02-02] MEDS ORDERED: Azithromycin 500 MG in 0.9 % Sodium Chloride 250 ML IVPB ONE (18:28)
[2019-02-02] MEDS ORDERED: cefTRIAXone 1,000 MG in Water for inj. (sterile) 10 ML IVP ONE (18:28)
[2019-02-02] MEDS ORDERED: *HR* Heparin 5,000 UNIT/ML VIAL IVP PRN ×2 (19:08)
[2019-02-02] MEDS ORDERED: *HR* Heparin 5,000 UNIT/ML VIAL IVP ONE (19:08)
[2019-02-02 19:18] LABS: INR 1.2; Prothrombin Time 13.2 Seconds (9.4-12.1)
[2019-02-02 19:21] LABS: Activated Partial Thrombo Time 28.9 Seconds (26.0-36.0)
[2019-02-02] MEDS: Heparin 25,000 UNIT/250 ML D5W 25,000 UNIT/250 ML IV.SOLN IVC SCH (20:08)
[2019-02-02 20:31] LABS: Bilirubin,Urine Small (Negative); Blood,Urine Trace (Negative); Clarity,Urine Cloudy (Clear); Color,Urine Dark Yellow (Yellow); Glucose,Urine (UA) Normal (Normal); Ketones,Urine Negative (Negative); Leukocyte Esterase,Urine Small (Negative); Nitrite,Urine Negative (Negative); Protein,Urine Negative (Neg-Trace); Urobilinogen,Urine Normal (Normal)
[2019-02-02 20:33] LABS: Hyaline Casts,Urine None Seen per lpf (None-Few); Squamous Epithelial Cell,Urine Many per lpf (None-Few)
[2019-02-02 21:12] LABS: Bacteria,Urine Few per hpf (None-Few)
[2019-02-02] MEDS ORDERED: Naloxone 0.4 MG/ML INJ IVP PRN (22:27)
[2019-02-03 02:37] LABS: Hematocrit 37.8 % (37.5-50.1); Hemoglobin 12.4 g/dL (12.9-16.9); Immature Granulocytes % 0.4 % (0-4); Lymphocytes # 0.1 K/mcL (0.6-4.6); Lymphocytes % 5.2 %; Mean Corpuscular HGB Conc 32.8 g/dL (31.6-35.5); Mean Corpuscular Hemoglobin 32.5 pg (28.0-33.3); Mean Platelet Volume 11.6 fL (9.4-12.4); Monocytes % 0.7 %; Neutrophils # 2.5 K/mcL (1.6-8.9); Platelet Count 121 K/mcL (140-400); Red Blood Count 3.82 M/mcL (4.19-5.50); Red Cell Distribution Width 15.6 % (11.5-14.5); Segmented Neutrophils % 93.7 %
[2019-02-03 02:39] LABS: INR 1.1; Prothrombin Time 12.7 Seconds (9.4-12.1)
[2019-02-03 02:42] LABS: White Blood Count 2.7 K/mcL (4.3-11.1)
[2019-02-03 02:58] LABS: Albumin 3.4 g/dL (3.5-5.7); Albumin/Globulin Ratio 1.5 (1.1-2.2); Bilirubin,Total 1.1 mg/dL (0.3-1.0); Calcium 8.5 mg/dL (8.6-10.3); Chol/HDL Ratio 3.2 (0-4.9); Globulin 2.2 g/dL (2.4-3.5); Magnesium 2.3 mg/dL (1.6-2.6); Phosphorous 4.4 mg/dL (2.7-4.5); Potassium 4.3 mEq/L (3.5-5.1); Total Protein 5.6 g/dL (6.4-8.9)
[2019-02-03 02:59] LABS: Platelet Estimate Slight Decrease (Normal)
[2019-02-03 03:10] LABS: Thyroid Stimulating Hormone 0.834 mcIU/mL (0.340-5.600)
[2019-02-03 03:21] LABS: Folate > 22.3 ng/mL (3.0-16.0); Vitamin B12 276 pg/mL (250-1100)
[2019-02-03] MEDS ORDERED: Gabapentin 100 MG CAPSULE PO PRN (05:22)
[2019-02-03] MEDS ORDERED: Ipratropium/Albuterol Neb 3 ML IH PRN (05:34)
[2019-02-03] MEDS: Azithromycin 500 MG in 0.9 % Sodium Chloride 250 ML IVPB SCH (06:48)
[2019-02-03 08:31] LABS: Estimated Average Glucose 143 mg/dl
[2019-02-03] MEDS: Cholecalciferol (D-3) 1,000 UNIT (25MCG) TABLET PO SCH (08:36)
[2019-02-03] MEDS: Aspirin 325 MG TABLET PO SCH (08:36)
[2019-02-03] MEDS: cefTRIAXone 1,000 MG in Water for inj. (sterile) 10 ML IVP SCH (08:36)
[2019-02-03] MEDS: Diltiazem CD (24hr) 120 MG CAPSULE PO SCH (08:36)
[2019-02-03 09:09] LABS: Sodium, Urine 51.2 mEq/L
[2019-02-03] MEDS ORDERED: Perflutren Lipid Microsphere 1.3 ML in 0.9 % Sodium Chloride 8.7 ML IVP ONE (10:40)
[2019-02-03] MEDS ORDERED: Perflutren Lipid Microsphere 2 ML VIAL ONE (10:43)
[2019-02-03] MEDS ORDERED: D5% in Water 1,000 ML IVC PRN (11:02)
[2019-02-03] MEDS ORDERED: Dextrose Gel 15 GM/37.5 ML TUBE PO PRN ×2 (11:02)
[2019-02-03] MEDS ORDERED: *HR* Dextrose 50 % in Water (Syg) 50 ML SYRINGE IVP PRN (11:02)
[2019-02-03] MEDS: Insulin LISPRO 300 UNITS/3 ML VIAL SQ SCH ×2 (12:18→17:51)
[2019-02-03] MEDS: hydrALAZINE 25 MG TABLET PO SCH ×2 (15:47→23:30)
[2019-02-03] MEDS: Famotidine 20 MG TABLET PO SCH (20:48)
[2019-02-03] MEDS: Heparin 25,000 UNIT/250 ML D5W 25,000 UNIT/250 ML IV.SOLN IVC SCH (20:48)
[2019-02-03] MEDS: Brinzolamide 1% 10 ML BOTTLE BOTH EYES SCH (20:49)
[2019-02-03] MEDS ORDERED: NON-FORMULARY MEDICATION 1 EACH EACH (Brinzolamide/Brimonidine Tart [Simbrinza 1%-0.2% Eye BOTH EYES SCH (21:00)
[2019-02-03] MEDS: Budesonide/Formoterol 160/4.5 1 PUFF INH IH SCH (21:55)
[2019-02-03] MEDS: (Netarsudil Mesylate [Rhopressa] 1 DROP) OP SCH (23:31)
[2019-02-03] MEDS: Latanoprost 2.5 ML BOTTLE BOTH EYES SCH (23:31)
[2019-02-04 05:04] LABS: Basophils % 0.2 %; Hematocrit 34.8 % (37.5-50.1); Hemoglobin 11.3 g/dL (12.9-16.9); Immature Granulocytes % 0.4 % (0-4); Lymphocytes # 0.4 K/mcL (0.6-4.6); Lymphocytes % 7.2 %; Mean Corpuscular HGB Conc 32.5 g/dL (31.6-35.5); Mean Corpuscular Hemoglobin 32.9 pg (28.0-33.3); Mean Corpuscular Volume 101.5 fL (83.0-100.0); Mean Platelet Volume 11.9 fL (9.4-12.4); Monocytes # 0.2 K/mcL (0.0-1.3); Monocytes % 2.8 %; Platelet Count 106 K/mcL (140-400); Red Blood Count 3.43 M/mcL (4.19-5.50); Red Cell Distribution Width 15.3 % (11.5-14.5); Segmented Neutrophils % 89.4 %
[2019-02-04 05:06] LABS: Neutrophils # 4.7 K/mcL (1.6-8.9); White Blood Count 5.3 K/mcL (4.3-11.1)
[2019-02-04 05:16] LABS: BUN/Creatinine Ratio 30 (6-26); Blood Urea Nitrogen 39 mg/dL (8-23); Calcium 8.5 mg/dL (8.6-10.3); Carbon Dioxide 22 mEq/L (23-29); Chloride 112 mEq/L (98-107); Glucose 154 mg/dL (70-105); Osmolality,Calculated 304 (280-300); Potassium 4.3 mEq/L (3.5-5.1); Sodium 141 mEq/L (136-145); eGFR For African Americans > 60 (> 60); eGFR For Non-African Americans 53 (> 60)
[2019-02-04] MEDS: Azithromycin 500 MG in 0.9 % Sodium Chloride 250 ML IVPB SCH (06:04)
[2019-02-04] MEDS: Tiotropium 18 MCG inhalation IH SCH (07:37)
[2019-02-04] MEDS: Budesonide/Formoterol 160/4.5 1 PUFF INH IH SCH ×2 (07:37→21:50)
[2019-02-04] MEDS ORDERED: (Ubidecarenone/Vit E Acetate [Co Q-10 100 Mg Softgel] PO SCH (09:00)
[2019-02-04] MEDS: Insulin LISPRO 300 UNITS/3 ML VIAL SQ SCH ×3 (09:02→16:47)
[2019-02-04] MEDS: Folic Acid 1 MG TABLET PO SCH (09:43)
[2019-02-04] MEDS: Aspirin 325 MG TABLET PO SCH (09:44)
[2019-02-04] MEDS: Diltiazem CD (24hr) 120 MG CAPSULE PO SCH (09:44)
[2019-02-04] MEDS: Cholecalciferol (D-3) 1,000 UNIT (25MCG) TABLET PO SCH (09:44)
[2019-02-04] MEDS: Isosorbide MONOnitrate (24 HR) 30 MG TAB.ER.24H PO SCH (09:45)
[2019-02-04] MEDS: hydrALAZINE 25 MG TABLET PO SCH ×3 (09:45→23:23)
[2019-02-04] MEDS: cefTRIAXone 1,000 MG in Water for inj. (sterile) 10 ML IVP SCH (09:46)
[2019-02-04] MEDS: Brinzolamide 1% 10 ML BOTTLE BOTH EYES SCH ×2 (09:54→20:07)
[2019-02-04] MEDS: Heparin 25,000 UNIT/250 ML D5W 25,000 UNIT/250 ML IV.SOLN IVC SCH (18:46)
[2019-02-04] MEDS: Famotidine 20 MG TABLET PO SCH (20:05)
[2019-02-04] MEDS: Latanoprost 2.5 ML BOTTLE BOTH EYES SCH (20:07)
[2019-02-04] MEDS: (Netarsudil Mesylate [Rhopressa] 1 DROP) OP SCH (20:07)
[2019-02-05 01:43] LABS: BUN/Creatinine Ratio 32 (6-26); Blood Urea Nitrogen 35 mg/dL (8-23); Calcium 8.5 mg/dL (8.6-10.3); Carbon Dioxide 23 mEq/L (23-29); Chloride 112 mEq/L (98-107); Glucose 109 mg/dL (70-105); Osmolality,Calculated 299 (280-300); Potassium 3.9 mEq/L (3.5-5.1); Sodium 140 mEq/L (136-145); eGFR For African Americans > 60 (> 60); eGFR For Non-African Americans > 60 (> 60)
[2019-02-05 01:45] LABS: Basophils % 0.2 %; Eosinophils # 0.2 K/mcL (0.0-0.6); Eosinophils % 3.7 %; Hemoglobin 10.6 g/dL (12.9-16.9); Immature Granulocytes % 0.4 % (0-4); Lymphocytes % 20.6 %; Mean Corpuscular HGB Conc 31.2 g/dL (31.6-35.5); Mean Corpuscular Hemoglobin 32.2 pg (28.0-33.3); Mean Corpuscular Volume 103.3 fL (83.0-100.0); Mean Platelet Volume 11.4 fL (9.4-12.4); Monocytes # 0.3 K/mcL (0.0-1.3); Monocytes % 5.6 %; Neutrophils # 3.2 K/mcL (1.6-8.9); Platelet Count 106 K/mcL (140-400); Red Blood Count 3.29 M/mcL (4.19-5.50); Segmented Neutrophils % 69.5 %; White Blood Count 4.6 K/mcL (4.3-11.1)
[2019-02-05] MEDS: Budesonide/Formoterol 160/4.5 1 PUFF INH IH SCH (07:46)
[2019-02-05] MEDS: Tiotropium 18 MCG inhalation IH SCH (07:46)
[2019-02-05] MEDS: Azithromycin 500 MG in 0.9 % Sodium Chloride 250 ML IVPB SCH (08:02)
[2019-02-05 08:04] VITALS: BP 149/87
[2019-02-05] MEDS: Insulin LISPRO 300 UNITS/3 ML VIAL SQ SCH (08:22)
[2019-02-05] MEDS: Aspirin 325 MG TABLET PO SCH (08:23)
[2019-02-05] MEDS: Isosorbide MONOnitrate (24 HR) 30 MG TAB.ER.24H PO SCH (08:26)
[2019-02-05] MEDS: Folic Acid 1 MG TABLET PO SCH (08:26)
[2019-02-05] MEDS: Cholecalciferol (D-3) 1,000 UNIT (25MCG) TABLET PO SCH (08:27)
[2019-02-05] MEDS: Diltiazem CD (24hr) 120 MG CAPSULE PO SCH (08:27)
[2019-02-05] MEDS: cefTRIAXone 1,000 MG in Water for inj. (sterile) 10 ML IVP SCH (08:29)
[2019-02-05] MEDS: Brinzolamide 1% 10 ML BOTTLE BOTH EYES SCH (08:33)
[2019-02-05] MEDS ORDERED: hydrALAZINE 25 MG TABLET PO SCH (16:00)
[2019-02-07] MEDS ORDERED: *HR* Methotrexate 2.5 MG TABLET PO SCH (14:28)
== END 2019-02-05 12:07 | disposition home health service (06) ==
LOC: EMEROOARM 16:17 → 2NENU 16:17 → SUATTDRO 19:59 → 2NENU 20:55
PROVIDERS: ADMIT Internal Medicine; ATTEND Internal Medicine

== ENCOUNTER 2019-11-18 13:57 | Inpatient (IN) ==
[2019-11-18 14:28] LABS: Basophils % 0.3 %; Eosinophils # 0.1 K/mcL (0.0-0.6); Eosinophils % 0.9 %; Hemoglobin 13.4 g/dL (12.9-16.9); Immature Granulocytes % 0.3 % (0-4); Lymphocytes # 0.6 K/mcL (0.6-4.6); Lymphocytes % 6.1 %; Mean Corpuscular HGB Conc 31.2 g/dL (31.6-35.5); Mean Corpuscular Hemoglobin 31.4 pg (28.0-33.3); Mean Corpuscular Volume 100.7 fL (83.0-100.0); Mean Platelet Volume 10.8 fL (9.4-12.4); Monocytes # 1.1 K/mcL (0.0-1.3); Monocytes % 11.3 %; Neutrophils # 7.8 K/mcL (1.6-8.9); Platelet Count 184 K/mcL (140-400); Red Blood Count 4.27 M/mcL (4.19-5.50); Red Cell Distribution Width 14.5 % (11.5-14.5); Segmented Neutrophils % 81.1 %; White Blood Count 9.6 K/mcL (4.3-11.1)
[2019-11-18 14:45] LABS: BUN/Creatinine Ratio 23 (6-26); Blood Urea Nitrogen 23 mg/dL (8-23); Calcium 9.6 mg/dL (8.6-10.3); Carbon Dioxide 26 mEq/L (23-29); Chloride 108 mEq/L (98-107); Glucose 116 mg/dL (70-105); Osmolality,Calculated 299 (280-300); Potassium 3.9 mEq/L (3.5-5.1); Sodium 142 mEq/L (136-145); Troponin I 0.03 ng/mL (< 0.04); eGFR For African Americans > 60 (> 60); eGFR For Non-African Americans > 60 (> 60)
[2019-11-18] MEDS ORDERED: Ipratropium/Albuterol Neb 3 ML IH ONE (14:45)
[2019-11-18] MEDS ORDERED: Isovue-370 500 ML BOTTLE IVP ONE (14:45)
[2019-11-18] MEDS ORDERED: methylPREDNISolone 125 MG/2 ML VIAL IVP ONE (17:22)
[2019-11-18] MEDS ORDERED: cefTRIAXone 1,000 MG in Water for inj. (sterile) 10 ML IVP ONE (17:22)
[2019-11-18] MEDS ORDERED: Azithromycin 500 MG in 0.9 % Sodium Chloride 250 ML IVPB ONE (17:24)
[2019-11-18] MEDS ORDERED: Acetaminophen 325 MG TABLET PO PRN (17:36)
[2019-11-18] MEDS ORDERED: *HR* Promethazine 25 MG/ML VIAL IVP PRN (17:36)
[2019-11-18] MEDS ORDERED: Amiodarone Premix 360 MG/200 ML BAG IVC ONE (18:05)
[2019-11-18] MEDS ORDERED: Amiodarone Premix 150 MG/100 ML BAG IVPB ONE ×2 (18:05→22:45)
[2019-11-18] MEDS ORDERED: *HR* Heparin 5,000 UNIT/ML VIAL IVP ONE ×2 (18:06→22:45)
[2019-11-18] MEDS ORDERED: *HR* Heparin 5,000 UNIT/ML VIAL IVP PRN ×2 (18:06)
[2019-11-18] MEDS ORDERED: Morphine Sulfate 2 MG/ML SYRINGE IVP ONE (18:12)
[2019-11-18] MEDS ORDERED: Nitroglycerin 0.4 MG TAB.SUBL SL PRN (18:12)
[2019-11-18] MEDS ORDERED: Amiodarone Premix 360 MG/200 ML BAG IVC SCH (18:15)
[2019-11-18] MEDS ORDERED: D5% in Water 1,000 ML IVC PRN (18:37)
[2019-11-18] MEDS ORDERED: *HR* Dextrose 50 % in Water (Vial) 50 ML VIAL IVP PRN (18:37)
[2019-11-18] MEDS ORDERED: Dextrose Gel 15 GM/37.5 ML TUBE PO PRN ×2 (18:37)
[2019-11-18] MEDS ORDERED: Ipratropium/Albuterol Neb 3 ML IH SCH (20:00)
[2019-11-18 20:06] LABS: Adenovirus Not Detected (Not Detect); Bordetella Pertussis Not Detected (Not Detect); Chlamydophila pneumoniae Not Detected (Not Detect); Coronavirus 229E Not Detected (Not Detect); Coronavirus HKU1 Not Detected (Not Detect); Coronavirus NL63 Not Detected (Not Detect); Coronavirus OC43 Not Detected (Not Detect); Human Metapneumovirus Not Detected (Not Detect); Human Rhinovirus/Enterovirus Not Detected (Not Detect); Influenza A Subtype 2009 H1 Not Detected (Not Detect); Influenza B Not Detected (Not Detect); Mycoplasma pneumoniae Not Detected (Not Detect); Parainfluenza Virus 1 Not Detected (Not Detect); Parainfluenza Virus 2 Not Detected (Not Detect); Parainfluenza Virus 3 Not Detected (Not Detect); Parainfluenza Virus 4 Not Detected (Not Detect); Respiratory Syncytial Virus Not Detected (Not Detect)
[2019-11-18] MEDS: Levalbuterol Neb 1.25 MG/3 ML IH SCH ×2 (21:00→22:56)
[2019-11-18 22:32] LABS: Hematocrit 41.5 % (37.5-50.1); Hemoglobin 13.2 g/dL (12.9-16.9); Mean Corpuscular HGB Conc 31.8 g/dL (31.6-35.5); Mean Corpuscular Hemoglobin 31.7 pg (28.0-33.3); Mean Corpuscular Volume 99.8 fL (83.0-100.0); Mean Platelet Volume 10.9 fL (9.4-12.4); Platelet Count 158 K/mcL (140-400); Red Blood Count 4.16 M/mcL (4.19-5.50); Red Cell Distribution Width 14.5 % (11.5-14.5); White Blood Count 13.8 K/mcL (4.3-11.1)
[2019-11-18 22:37] LABS: Heparin anti-factor XA UFH < 0.04 IU/mL (0.30-0.70)
[2019-11-18 22:38] LABS: INR 1.2
[2019-11-18] MEDS: Insulin LISPRO 300 UNITS/3 ML VIAL SQ SCH ×2 (22:51→22:52)
[2019-11-18 22:53] LABS: Albumin 4.1 g/dL (3.5-5.7); Albumin/Globulin Ratio 1.4 (1.1-2.2); Bilirubin,Direct 0.3 mg/dL (0.0-0.2); Bilirubin,Indirect 0.8 mg/dL (0.0-1.0); Bilirubin,Total 1.1 mg/dL (0.3-1.0); Total Protein 7.1 g/dL (6.4-8.9)
[2019-11-18] MEDS: Heparin 25,000UNIT/250ML 1/2NS 25,000 UNIT/250 ML IV.SOLN IVC SCH (23:02)
[2019-11-19] MEDS: MethylPREDNISolone 40 MG/ML VIAL IVP SCH ×4 (00:37→23:22)
[2019-11-19 01:38] LABS: Hematocrit 40.6 % (37.5-50.1); Mean Corpuscular Hemoglobin 32.4 pg (28.0-33.3); Mean Corpuscular Volume 101.2 fL (83.0-100.0); Mean Platelet Volume 11.5 fL (9.4-12.4); Platelet Count 151 K/mcL (140-400); Red Blood Count 4.01 M/mcL (4.19-5.50); Red Cell Distribution Width 14.6 % (11.5-14.5); White Blood Count 13.2 K/mcL (4.3-11.1)
[2019-11-19 01:58] LABS: BUN/Creatinine Ratio 19 (6-26); Blood Urea Nitrogen 21 mg/dL (8-23); Calcium 9.2 mg/dL (8.6-10.3); Carbon Dioxide 20 mEq/L (23-29); Chloride 106 mEq/L (98-107); Glucose 272 mg/dL (70-105); Osmolality,Calculated 299 (280-300); Potassium 3.7 mEq/L (3.5-5.1); Sodium 138 mEq/L (136-145); eGFR For African Americans > 60 (> 60); eGFR For Non-African Americans > 60 (> 60)
[2019-11-19] MEDS: Levalbuterol Neb 1.25 MG/3 ML IH SCH ×6 (03:33→23:20)
[2019-11-19] MEDS: Insulin LISPRO 300 UNITS/3 ML VIAL SQ SCH ×4 (07:46→19:15)
[2019-11-19] MEDS: Aspirin 81 MG TAB.CHEW PO SCH (07:47)
[2019-11-19] MEDS: Furosemide 40 MG/4 ML VIAL IVP SCH ×2 (08:06→16:09)
[2019-11-19 09:27] LABS: Bilirubin,Urine Negative (Negative); Blood,Urine Small (Negative); Clarity,Urine Clear (Clear); Color,Urine Light-Yellow (Yellow); Glucose,Urine (UA) 300 mg/dL (Normal); Ketones,Urine Negative (Negative); Leukocyte Esterase,Urine Negative (Negative); Mucus,Urine Few per lpf (None-Few); Nitrite,Urine Negative (Negative); PH,Urine 5.5 pH Units (5.0-8.0); Protein,Urine Negative (Neg-Trace); Specific Gravity,Urine 1.025 (1.010-1.025); Squamous Epithelial Cell,Urine Few per hpf (None-Few); Urobilinogen,Urine Normal (Normal); WBC,Urine 0-3 per hpf (0-3)
[2019-11-19] MEDS ORDERED: Metoprolol XL (24 HR) Succ 25 MG TAB.ER.24H PO SCH (09:30)
[2019-11-19] MEDS ORDERED: Perflutren Lipid Microsphere 1.3 ML in 0.9 % Sodium Chloride 8.7 ML IVP PRN (10:10)
[2019-11-19] MEDS: cefTRIAXone 2,000 MG in Water for inj. (sterile) 20 ML IVP SCH (13:51)
[2019-11-19] MEDS: Isosorbide MONOnitrate (24 HR) 30 MG TAB.ER.24H PO SCH (13:52)
[2019-11-19] MEDS: Azithromycin 500 MG in 0.9 % Sodium Chloride 250 ML IVPB SCH (17:33)
[2019-11-19] MEDS: Heparin 25,000UNIT/250ML 1/2NS 25,000 UNIT/250 ML IV.SOLN IVC SCH (19:16)
[2019-11-19] MEDS: Latanoprost 2.5 ML BOTTLE BOTH EYES SCH (19:16)
[2019-11-19] MEDS: Metoprolol XL (24 HR) Succ 25 MG TAB.ER.24H PO SCH (19:16)
[2019-11-19] MEDS: Budesonide/Formoterol 160/4.5 1 PUFF INH IH SCH (19:46)
[2019-11-20] MEDS: Levalbuterol Neb 1.25 MG/3 ML IH SCH ×6 (03:36→23:42)
[2019-11-20 03:49] LABS: Hematocrit 38.5 % (37.5-50.1); Hemoglobin 12.3 g/dL (12.9-16.9); Mean Corpuscular HGB Conc 31.9 g/dL (31.6-35.5); Mean Corpuscular Hemoglobin 31.9 pg (28.0-33.3); Mean Corpuscular Volume 99.7 fL (83.0-100.0); Mean Platelet Volume 11.8 fL (9.4-12.4); Platelet Count 160 K/mcL (140-400); Red Blood Count 3.86 M/mcL (4.19-5.50); Red Cell Distribution Width 14.7 % (11.5-14.5); White Blood Count 15.9 K/mcL (4.3-11.1)
[2019-11-20 04:08] LABS: BUN/Creatinine Ratio 26 (6-26); Blood Urea Nitrogen 32 mg/dL (8-23); Calcium 9.3 mg/dL (8.6-10.3); Carbon Dioxide 23 mEq/L (23-29); Chloride 105 mEq/L (98-107); Glucose 198 mg/dL (70-105); Osmolality,Calculated 300 (280-300); Potassium 3.7 mEq/L (3.5-5.1); Sodium 139 mEq/L (136-145); eGFR For African Americans > 60 (> 60); eGFR For Non-African Americans 56 (> 60)
[2019-11-20] MEDS: Isosorbide MONOnitrate (24 HR) 30 MG TAB.ER.24H PO SCH (07:36)
[2019-11-20] MEDS: Aspirin 81 MG TAB.CHEW PO SCH (07:36)
[2019-11-20] MEDS: Metoprolol XL (24 HR) Succ 25 MG TAB.ER.24H PO SCH ×2 (07:37→20:48)
[2019-11-20] MEDS: Furosemide 40 MG/4 ML VIAL IVP SCH ×2 (07:37→17:51)
[2019-11-20] MEDS: Insulin LISPRO 300 UNITS/3 ML VIAL SQ SCH ×4 (07:40→20:58)
[2019-11-20] MEDS: Budesonide/Formoterol 160/4.5 1 PUFF INH IH SCH ×2 (07:57→20:03)
[2019-11-20] MEDS: Tiotropium 18 MCG inhalation IH SCH (07:57)
[2019-11-20] MEDS: predniSONE 20 MG TABLET PO SCH (11:50)
[2019-11-20] MEDS: cefTRIAXone 2,000 MG in Water for inj. (sterile) 20 ML IVP SCH (15:08)
[2019-11-20] MEDS: Heparin 25,000UNIT/250ML 1/2NS 25,000 UNIT/250 ML IV.SOLN IVC SCH (15:31)
[2019-11-20] MEDS: Azithromycin 500 MG in 0.9 % Sodium Chloride 250 ML IVPB SCH (17:52)
[2019-11-21] MEDS: Levalbuterol Neb 1.25 MG/3 ML IH SCH ×3 (03:36→11:20)
[2019-11-21] MEDS: Latanoprost 2.5 ML BOTTLE BOTH EYES SCH (03:47)
[2019-11-21 06:19] LABS: Hematocrit 41.5 % (37.5-50.1); Mean Corpuscular HGB Conc 31.3 g/dL (31.6-35.5); Mean Corpuscular Hemoglobin 32.2 pg (28.0-33.3); Mean Corpuscular Volume 102.7 fL (83.0-100.0); Mean Platelet Volume 11.4 fL (9.4-12.4); Platelet Count 182 K/mcL (140-400); Red Blood Count 4.04 M/mcL (4.19-5.50); Red Cell Distribution Width 14.8 % (11.5-14.5); White Blood Count 14.3 K/mcL (4.3-11.1)
[2019-11-21 06:36] LABS: BUN/Creatinine Ratio 34 (6-26); Blood Urea Nitrogen 43 mg/dL (8-23); Calcium 9.4 mg/dL (8.6-10.3); Carbon Dioxide 24 mEq/L (23-29); Chloride 105 mEq/L (98-107); Glucose 158 mg/dL (70-105); Osmolality,Calculated 302 (280-300); Potassium 3.6 mEq/L (3.5-5.1); Sodium 139 mEq/L (136-145); eGFR For African Americans > 60 (> 60); eGFR For Non-African Americans 54 (> 60)
[2019-11-21] MEDS: Budesonide/Formoterol 160/4.5 1 PUFF INH IH SCH (07:14)
[2019-11-21] MEDS: Metoprolol XL (24 HR) Succ 25 MG TAB.ER.24H PO SCH (08:07)
[2019-11-21] MEDS: predniSONE 20 MG TABLET PO SCH (08:07)
[2019-11-21] MEDS: Isosorbide MONOnitrate (24 HR) 30 MG TAB.ER.24H PO SCH (08:07)
[2019-11-21] MEDS: Aspirin 81 MG TAB.CHEW PO SCH (08:07)
[2019-11-21] MEDS: Furosemide 40 MG/4 ML VIAL IVP SCH (08:07)
[2019-11-21] MEDS: Insulin LISPRO 300 UNITS/3 ML VIAL SQ SCH ×2 (08:08→13:05)
[2019-11-21] MEDS ORDERED: Spironolactone 25 MG TABLET PO SCH (09:00)
[2019-11-21 10:09] VITALS: BP 112/72
[2019-11-21] MEDS: Tiotropium 18 MCG inhalation IH SCH (11:20)
== END 2019-11-21 14:06 | disposition home or self-care (01) | DRG 280 ==
LOC: 2NNU 13:57 → EMEROOARM 13:57 → 2NNU 21:40 → 3ANU 11-20 15:59
PROVIDERS: ADMIT Student in an Organized Health Care Education/Training Program; ATTEND Student in an Organized Health Care Education/Training Program